=== PATIENT | female | born 1960 | race Caucasian/White ===

== ENCOUNTER 2024-01-14 16:10 | Inpatient (IN) | payer MEDICARE, OTHER ==
[~2024-01-14] VITALS: Ht 170.2 cm; Wt 99.0 kg
--- NOTE | 2024-01-14 18:03 | ED.PDOC ---
HPI (NEURO) HPI Comments 63y F who presents to the ED for chief complaint of migraine. Pt states she has been having migraine for the past 4 days. Pt states she has history of migraines and felt throbbing sensation by the L side of her head, non-radiating, rating the pain 8/10, constant, with no associated exacerbating or relieving factors. Pt states she has been taking her Nortek but states it has not been helping so she came to the ED for further evaluation. Pt otherwise denies chest pain, shorntess of breath, nausea, vomiting, or blurred vision. Pt has noted elevated blood pressure of 141/98 in the ED with all other vitals in normal range. Pt otherwise denies any other symptoms at this time. Chief Complaint: Headache Time Seen by MD: 18:01 Reviewed Notes: Medications, Allergies Information Source: Patient Mode of Arrival: Ambulatory Brought in by: self Past Medical History PAST MEDICAL HISTORY: HTN Surgical History: Denies all surgeries DRIVING INSTRUCTOR History: Denies all DRIVING INSTRUCTOR Hx Family History Family History: Unknown Social History Smoker: Non-Smoker Alcohol: Denies ETOH Use Drugs: Denies Drug Use Lives In: Home Constitutional: denies: chills, diaphoresis, fatigue, fever, malaise, sweats, weakness, others EENTM: denies: blurred vision, double vision, ear bleeding, ear discharge, ear drainage, ear pain, ear ringing, eye pain, eye redness, hearing loss, mouth pain, mouth swelling, nasal discharge, nose bleeding, nose congestion, nose pain, photophobia, tearing, throat pain, throat swelling, voice changes, others Respiratory: denies: cough, hemoptysis, orthopnea, SOB at rest, shortness of breath, SOB with excertion, stridor, wheezing, others Cardiovascular: denies: chest pain, dizzy spells, diaphoresis, Dyspnea on exertion, edema, irregular heart beat, left arm pain, lightheadedness, palpitations, PND, syncope, others Gastrointestinal: denies: abdomen distended, abdominal pain, blood streaked bowels, constipated, diarrhea, dysphagia, difficulty swallowing, hematemesis, melena, nausea, poor appetite, poor fluid intake, rectal bleeding, rectal pain, vomiting, others Genitourinary: denies: abnormal vagina bleeding, burning, dyspareunia, dysuria, flank pain, frequency, hematuria, incontinence, pain, , vagina discharge, urgency, others Neurological: reports: headache; denies: dizziness, fainting, left sided numbness, left sided weakness, numbness, paresthesia, pre-existing deficit, right sided numbness, right sided weakness, seizure, speech problems, tingling, tremors, weakness, others Musculoskeletal: denies: back pain, gout, joint pain, joint swelling, muscle pain, muscle stiffness, neck pain, others Integumetry: denies: bruises, change in color, change in hair/nails, dryness, laceration, lesions, lumps, rash, wounds, others Allergic/Immunocompromised: denies: Difficulty Healing, Frequent Infections, Hives, Itching, others Hematologic/Lymphatic: denies: anemia, blood clots, easy bleeding, easy bruising, swollen glands, others Endocrine: denies: excessive hunger, excessive sweating, excessive thirst, excessive urination, flushing, intolerance to cold, intolerance to heat, unexplained weight gain, unexplained weight loss, others Psychiatric: denies: anxiety, bipolar disorder, depression, hopeless, panic disorder, schizophrenia, sleepless, suicidal, others All Other Systems: Reviewed and Negative Physical Exam General Appearance: No Apparent Distress, Normal HEENT: Normal ENT Inspection, Pharynx Normal, TMs Normal Neck: Full Range of Motion, Non-Tender, Normal, Normal Inspection Respiratory: Chest Non-Tender, Lungs Clear, No Accessory Muscle Use, No Respiratory Distress, Normal Breath Sounds Cardiovascular: No Edema, No JVD, No Murmur, No Gallop, Normal Peripheral Pulses, Regular Rate/Rhythm Breast Exam: Deferred Gastrointestinal: No Organomegaly, Non Tender, No Pulsatile Mass, Normal Bowel Sounds, Soft Genitalia: Deferred Pelvic: Deferred Rectal: Deferred Extremities: No calf tenderness, Normal capillary refill, Normal inspection, Normal range of motion, Non-tender, No pedal edema Musculoskeletal : Apperance: Normal Neurologic: Alert, 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 Was a procedure done?: No Differential Diagnosis (SZ) Headache: Migraine, Closed Head Injury, Sinusitis, Trigeminal Neuralgia X-Ray, Labs, Meds, VS Vital Signs Date Time Temp Pulse Resp B/P (MAP) Pulse Ox O2 Delivery O2 Flow Rate FiO2 01/14/24 18:35 94 16 97 Room Air* 0 21 01/14/24 18:11 98.2 94 16 192/110 (137) 97 98.2 01/14/24 18:11 94 16 01/14/24 17:32 98.5 104 18 141/98 (112) 97 Current Medications Medications (Trade) Dose Ordered Sig/Yaniv Route Start Time Stop Time Status Last Admin Sodium Chloride 1,000 ml @ 1,000 mls/hr Q1H ONCE IV 01/14/24 17:15 01/14/24 18:14 DC 01/14/24 18:06 Metoclopramide HCl (Reglan Injection) 10 mg ONCE ONCE IV 01/14/24 17:15 01/14/24 17:16 DC 01/14/24 18:21 Acetaminophen (Tylenol Tablet) 650 mg ONCE ONCE PO 01/14/24 17:15 01/14/24 17:16 DC 01/14/24 18:07 Ketorolac Tromethamine (Toradol Injection) 15 mg ONCE ONCE IV 01/14/24 17:15 01/14/24 17:16 DC 01/14/24 18:20 Magnesium Sulfate/ Dextrose 100 ml @ 100 mls/hr Q1H IV 01/14/24 20:00 01/14/24 21:59 DC 01/14/24 22:00 Dexamethasone Sodium Phosphate (Decadron Injection) 10 mg ONCE ONCE IV 01/14/24 20:00 01/14/24 20:01 DC 01/14/24 20:23 Sumatriptan Succinate (Imitrex Inj) 6 mg ONCE ONCE SC 01/14/24 23:15 01/14/24 23:16 DC 01/14/24 23:26 Diphenhydramine HCl (Benadryl Injection) 25 mg ONCE ONCE IV 01/14/24 23:15 01/14/24 23:16 DC 01/14/24 23:27 Time of 1ST Reevaluation: 18:30 Reevaluation 1ST: Unchanged Patient Education/Counseling: Diagnosis, Treatment Family Education/Counseling: No Family Present Departure 1 Departure Time of Disposition: 23:37 (Patient with intractable migraine has failed multiple other treatments. We will admit patient for status migrainous.) Impression: Primary Impression: Migraine Qualified Codes: G43.111 - Migraine with aura, intractable, with status migrainosus Disposition: ADMITTED INPATIENT Admit to: Med Surg Condition: Serious Critical Care Note Critical Care Time?: No Stability Stability form required: No Heart Score Heart Score: Heart Score Response (Comments) Value History N/A 0 EKG N/A 0 Age N/A 0 Risk Factors N/A 0 Troponin N/A 0 Total 0 I personally scribed for CHINO DONAHUE MD ([email or web address]) on 01/14/24 at 18:03. Electronically submitted by Mason Waters ([facility]). CHINO DONAHUE MD Jan 14, 2024 18:03
[2024-01-14] MEDS: SODIUM CHLORIDE 0.9% 1,000 ML IV ONE (18:06)
[2024-01-14] MEDS: ACETAMINOPHEN 325 MG TAB PO ONE (18:07)
[2024-01-14] MEDS: KETOROLAC TROMETH 30 MG/ML 1ML VIAL IV ONE (18:20)
[2024-01-14] MEDS: METOCLOPRAMIDE HCL 5MG/ml INJ 2ml VIAL IV ONE (18:21)
[2024-01-14 18:35] VITALS: PULSE 94; RESP 16; O2SAT 97
[2024-01-14] MEDS: MAGNESIUM SULFATE 1GM/100ML 100 ML IV SCH (20:23)
[2024-01-14] MEDS: DexAMETHasone SOD PHOS 10MG/1ML VIAL INJ IV ONE (20:23)
[2024-01-14] MEDS: SUMAtriptan SUCCINATE 6 MG/0.5 ML VL SC ONE (23:26)
[2024-01-14] MEDS: diphenhdrAMINE HCL 50 MG/1 ML VL IV ONE (23:27)
[2024-01-14 23:55] LABS: Basophils # (auto) 0 10 ^3/uL (0-0.2); Basophils % (auto) 0.3 % (0.0-2.0); Eosinophils # (auto) 0 10 ^3/uL (0-0.8); Eosinophils % (auto) 0.3 % (0.0-7.0); Hematocrit 43.5 % (36.0-46.0); Hemoglobin 14.4 g/dL (12.2-16.2); Lymphocytes # (auto) 1.4 10 ^3/uL (0.4-5.4); Lymphocytes % (auto) 15.4 % (10.0-50.0); Mean Corpuscular Hgb Conc. 33.1 g/dL (32.0-36.0); Mean Corpuscular Volume 96.7 fL (80.0-100.0); Monocytes # (auto) 0.2 10 ^3/uL (0-1.3); Monocytes % (auto) 1.8 % (0.0-12.0); Neutrophils # (auto) 7.6 10 ^3/uL (1.6-8.6); Neutrophils % (auto) 82.2 % (37.0-80.0); Nucleated Red Blood Cells % 0.1 %; Platelet Count (auto) 334 10^3/uL (140-450); Red Cell Distribution Width 14.1 % (11.8-14.3); White Blood Cell 9.2 10^3/uL (4.4-10.8)
[2024-01-15] VITALS (9 sets, daily range): BP systolic 141–202; BP diastolic 85–109; PULSE 82–116; RESP 16–20; TEMP 97.7–98.2; O2SAT 94–97
[2024-01-15 00:06] LABS: Chloride 106 mmol/L (98-107); Sodium 137 mmol/L (136-145)
[2024-01-15 00:07] LABS: Anion Gap 14 (5-15); Calcium 10.4 mg/dL (8.7-10.4); Carbon Dioxide 17 mmol/L (20-31)
[2024-01-15 00:12] LABS: BUN/Creatinine Ratio 20.8 (10.0-20.0); Blood Urea Nitrogen 26 mg/dL (9-23); Glucose 176 mg/dL (74-106)
[2024-01-15] MEDS ORDERED: DOCUSATE SOD 100 MG CAP PO PRN (01:15)
[2024-01-15] MEDS ORDERED: ONDANSETRON HCL 4 MG/2 ML VIAL IV PRN (01:15)
[2024-01-15] MEDS ORDERED: ACETAMINOPHEN 325 MG TAB PO PRN (01:15)
[2024-01-15] MEDS ORDERED: NITROGLYCERIN 0.4 MG SL TAB SL PRN (01:30)
--- NOTE | 2024-01-15 01:30 | DVHHP2 ---
History of Present Illness Reason for Visit: Headache History of Present Illness The patient is a 63-year-old female with past medical history of hypertension who presented to [facility] ED with complaint of migraine headache. Patient reports symptoms progressively get worse with left-sided headache, nonradiating, throbbing sensation, rating 8/10 numeric scale, constant, getting worse that prompted this visit. Patient reports she has been taking her Nortek, but has not been helping, so she came to the ED for further evaluation. Patient was seen and evaluated in the ED, laboratory data shows WBC 9.2, platelets 334, sodium 137, potassium 4.0, BUN 26, creatinine 1.25, glucose 176, hemoglobin A1c 6.4, blood pressure 192/110 trending down to 145/76, heart rate 94, temperature 98.2 F, O2 saturation 97% on room air. Please see medication orders section in the computer. On my assessment, patient denied chest pain, no dizziness, no diaphoresis, no blurry vision, no shortness of breath, no nausea, no vomiting, no fever, no chills. Patient was admitted for further evaluation and medical management. Past Medical History HTN Past Surgical History Denies all surgeries Family History Reviewed, noncontributory to the management of this case. Past Social History The patient lives at home, denies smoking, alcohol or illicit drugs abuse. Review of Systems Constitutional: Yes: Weakness; No: Fever, Chills, Sweats, Malaise, Other Eyes: No: Pain, Vision change, Conjunctivae inflammation, Eyelid inflammation, Other, Redness ENT: No: Ear pain, Ear discharge, Nose pain, Nose discharge, Nose congestion, Mouth pain, Mouth swelling, Throat pain, Throat swelling, Other Respiratory: No: Cough, Dry, Shortness of breath, SOB with excertion, Wheezing, Hemoptysis, Pleuritic Pain, Sputum, Wheezing, Other Cardiovascular: No: Chest Pain, Palpitations, Orthopnea, Paroxysmal Noc. Dyspnea, Edema, Lt Headedness, Other Gastrointestinal: No: Nausea, Vomiting, Abdominal Pain, Diarrhea, Constipation, Melena, Hematochezia, Other Genitourinary: No Dysuria, No Frequency, No Incontinence, No Hematuria, No Retention, No Other Musculoskeletal: No: other, neck pain, shoulder pain, arm pain, back pain, hand pain, leg pain, foot pain Skin: No: Rash, Lesions, Jaundice, Bruising, Other Neurological: Other (Headache); No: Weakness, Numbness, Incoordination, Change in speech, Confusion, Seizures Allergies: Coded Allergies: NO KNOWN ALLERGIES (Unverified , 01/14/24) Medications Current Medications Medications Dose Ordered Sig/Yaniv Route Start Time Stop Time Status Last Admin Dose Admin Sumatriptan Succinate 25 mg Q2HP PRN PO 01/15/24 01:15 Sodium Chloride 1,000 ml @ 60 mls/hr [id number] IV 01/15/24 01:15 Acetaminophen/ Hydrocodone Bitart 1 tab Q4HP PRN PO 01/15/24 01:15 Ondansetron HCl 4 mg Q4HP PRN IV 01/15/24 01:15 Docusate Sodium 100 mg BIDPRN PRN PO 01/15/24 01:15 Acetaminophen 650 mg Q6HP PRN PO 01/15/24 01:15 Exam Vital Signs Vital Signs Date Time Temp Pulse Resp B/P (MAP) Pulse Ox O2 Delivery O2 Flow Rate FiO2 01/14/24 18:35 94 16 97 Room Air* 0 21 01/14/24 18:11 98.2 192/110 (137) 98.2 General Appearance: Alert, Oriented X3, Cooperative, No acute distress HEENT: Atraumatic, PERRLA, EOMI, Mucous membr. moist/pink Respiratory: Clear to auscultation, Normal air movement Cardiovascular: Regular rate, Normal S1, Normal S2, No murmurs Abdominal: Normal bowel sounds, Soft, No tenderness, No hepatospenomegaly, No masses Extremities: No clubbing, No cyanosis, No edema, Normal pulses, No tenderness/swelling Skin: No rashes, No breakdown, No significant lesion Neuro: Normal gait, Normal speech, Strength at 5/5 X4 ext, Normal tone, Sensation intact, Cranial nerves 3-12 NL, Reflexes 2+ Psych/Mental Status: Mental status NL, Mood NL Labs/Xrays Labs Test 01/14/24 23:46 Range/Units White Blood Count 9.2 4.4-10.8 10^3/uL Red Blood Count 4.50 4.0-5.20 10^6/uL Hemoglobin 14.4 12.2-16.2 g/dL Hematocrit 43.5 36.0-46.0 % Mean Corpuscular Volume 96.7 80.0-100.0 fL Mean Corpuscular Hemoglobin 32.0 28.0-32.0 pg Mean Corpuscular Hemoglobin Concent 33.1 32.0-36.0 g/dL Red Cell Distribution Width 14.1 11.8-14.3 % Platelet Count 334 140-450 10^3/uL Mean Platelet Volume 7.2 6.9-10.8 fL Neutrophils (%) (Auto) 82.2 H 37.0-80.0 % Lymphocytes (%) (Auto) 15.4 10.0-50.0 % Monocytes (%) (Auto) 1.8 0.0-12.0 % Eosinophils (%) (Auto) 0.3 0.0-7.0 % Basophils (%) (Auto) 0.3 0.0-2.0 % Neutrophils # (Auto) 7.6 1.6-8.6 10 ^3/uL Lymphocytes # (Auto) 1.4 0.4-5.4 10 ^3/uL Monocytes # (Auto) 0.2 0-1.3 10 ^3/uL Eosinophils # (Auto) 0 0-0.8 10 ^3/uL Basophils # (Auto) 0 0-0.2 10 ^3/uL Nucleated Red Blood Cells 0.1 % Sodium Level 137 136-145 mmol/L Potassium Level 4.0 3.5-5.1 mmol/L Chloride Level 106 98-107 mmol/L Carbon Dioxide Level 17 L 20-31 mmol/L Anion Gap 14 5-15 Blood Urea Nitrogen 26 H 9-23 mg/dL Creatinine 1.25 H 0.550-1.02 mg/dL Glomerular Filtration Rate Calc 48 >90 mL/min BUN/Creatinine Ratio 20.8 H 10.0-20.0 Serum Glucose 176 H 74-106 mg/dL Calcium Level 10.4 8.7-10.4 mg/dL Assessment/Plan Assessment/Plan Hypertensive urgency Headache Migraine with aura, intractable, with status migrainosus Type 2 diabetes mellitus with hyperglycemia Plan 1. Admit to med surge unit 2. Breathing treatment 3. Pain control management 4. Management of fluids and electrolytes 5. Consultation for hospitalist 6. Diagnostic tests head CT 7. DVT prophylaxis-on SCDs 8. Repeat labs CBC, CMP in a.m. 9. Continue with current medical management 10. Treatment plan discussed with patient and RN. Patient verbalized understanding. Plan discussed with: Patient, Other (RN) My Orders Orders - ALEJANDRINA ANDERSEN DNP Procedure Category Date Status Time Complete Blood Count LAB 01/15/24 Logged 04:00 Comprehensive LAB 01/15/24 Logged Metabolic Panel 04:00 Sumatriptan Succinate PHA 01/15/24 In Process Tablet (Imitrex Ta 01:15 Hemoglobin A1c LAB 01/15/24 In Process 01:11 Allergies RITO 01/15/24 In Process 01:11 Code Status CODE 01/15/24 Transmitted 01:11 Sodium Chloride 0.9% PHA 01/15/24 In Process 01:15 Oxygen Per Hour RT 01/15/24 Transmitted 01:11 Hydrocodone-Acet PHA 01/15/24 In Process 5/325mg Tab ([place] 01:15 Ondansetron Hcl PHA 01/15/24 In Process (Zofran) 01:15 Docusate Sodium PHA 01/15/24 In Process Capsule (Colace 01:15 Complete Blood Count LAB 01/16/24 Verified 04:00 Comprehensive LAB 01/16/24 Verified Metabolic Panel 04:00 Cardiac DIET 01/15/24 Transmitted Diet-2gna,Lofat,Lochol Breakfast Condition: Serious RITO 01/15/24 In Process 01:11 Acetaminophen Tablet PHA 01/15/24 In Process (Tylenol Tablet) 01:15 Bedrest With Bathroom RITO 01/15/24 In Process Privileg 01:11 Sequential RITO 01/15/24 In Process Compression Device * Neurology Consult CONS 01/15/24 Transmitted 01:11 Metoprolol Tartrate PHA 01/15/24 Transmitted Tablet (Lopressor Ta 10:00 Losartan Tablet PHA 01/15/24 Transmitted (Cozaar Tablet) 10:00 Hydralazine Injection PHA 01/15/24 Transmitted (Apresoline Inject 01:30 Admit ADMIT 01/15/24 Transmitted 01:27 Nitroglycerin PHA 01/15/24 Transmitted Sublingual (Ntrostat 01:30 Morphine Sulfate PHA 01/15/24 Transmitted Injection 01:30 Notify Of Changes RITO 01/15/24 Transmitted From Base 01:27 Emergency Dysrhythmia RITO 01/15/24 Transmitted Protocol 01:27 Oxygen By Nasal RT 01/15/24 Transmitted Cannula 01:27 Problem List: (1) Hypertensive urgency (2) Headache (3) Type 2 diabetes mellitus with hyperglycemia (4) Migraine with aura, intractable, with status migrainosus Date of Service: Jan 15, 2024 Billing Provider: ALEJANDRINA ANDERSEN DNP Common Visit Codes: [id number] INP/OBS CARE (HIGH) ALEJANDRINA ANDERSEN DNP Jan 15, 2024 01:30
[2024-01-15] MEDS: SODIUM CHLORIDE 0.9% 1,000 ML IV SCH (02:00)
[2024-01-15] MEDS: hydrALAZINE HCL 20 MG/ML VL IV PRN (02:20)
[2024-01-15] MEDS: cloNIDine HCL 0.1 MG TAB PO ONE (03:00)
[2024-01-15] MEDS: SUMAtriptan SUCCINATE 25 MG TAB PO PRN (03:09)
[2024-01-15] MEDS: HYDROcodone-ACET 5/325MG TAB PO PRN (03:28)
[2024-01-15] MEDS: MORPHINE SULFATE INJ 2 MG/ml SYRG IV PRN (04:37)
[2024-01-15] MEDS ORDERED: DEXTROSE (50%) 50ML SYRG IV PRN (04:45)
[2024-01-15 05:37] LABS: Basophils # (auto) 0 10 ^3/uL (0-0.2); Basophils % (auto) 0.2 % (0.0-2.0); Eosinophils # (auto) 0 10 ^3/uL (0-0.8); Eosinophils % (auto) 0.1 % (0.0-7.0); Hematocrit 40.9 % (36.0-46.0); Hemoglobin 13.8 g/dL (12.2-16.2); Lymphocytes # (auto) 1.7 10 ^3/uL (0.4-5.4); Lymphocytes % (auto) 22.6 % (10.0-50.0); Mean Corpuscular Hemoglobin 32.2 pg (28.0-32.0); Mean Corpuscular Hgb Conc. 33.7 g/dL (32.0-36.0); Mean Corpuscular Volume 95.6 fL (80.0-100.0); Monocytes # (auto) 0.4 10 ^3/uL (0-1.3); Monocytes % (auto) 4.7 % (0.0-12.0); Neutrophils # (auto) 5.5 10 ^3/uL (1.6-8.6); Neutrophils % (auto) 72.4 % (37.0-80.0); Nucleated Red Blood Cells % 0.1 %; Platelet Count (auto) 322 10^3/uL (140-450); Red Blood Cells 4.28 10^6/uL (4.0-5.20); Red Cell Distribution Width 14.5 % (11.8-14.3); White Blood Cell 7.5 10^3/uL (4.4-10.8)
[2024-01-15 05:52] LABS: Alanine Aminotransferase 35 U/L (7-40); Albumin 4.9 g/dL (3.2-4.8); Alkaline Phosphatase 133 U/L (46-116); Anion Gap 13 (5-15); Aspartate Aminotransferase 18 U/L (13-40); BUN/Creatinine Ratio 20.4 (10.0-20.0); Bilirubin, Total 0.2 mg/dL (0.2-1.0); Blood Urea Nitrogen 23 mg/dL (9-23); Calcium 10.2 mg/dL (8.7-10.4); Carbon Dioxide 19 mmol/L (20-31); Chloride 107 mmol/L (98-107); Glucose 171 mg/dL (74-106); Potassium 3.8 mmol/L (3.5-5.1); Sodium 139 mmol/L (136-145); Total Protein 7.6 g/dL (5.7-8.2)
--- NOTE | 2024-01-15 07:42 | DVHINCON2 ---
Date of Consultation Date Date: 01/15/24 History of Present Illness History of Present Illness [place] [facility] Note # Demographics Consult Type: General Neurology Patient Location: Inpatient First Name: TANISHA Last Name: MARIAN Date of : 1960 Age: 64 Gender: Female Facility: [facility] Time of Initial Page (): 01/15/2024, 07:34 Time of Return Call ([place] Time): 01/15/2024, 07:34 # HPI History: 64yof with migraines who p/w migraine for the past 4 days. # Exam Time of Exam ([place] ): 01/15/2024, 07:38 Mental Status: - awake - alert and oriented x 3 - follows commands Language: - normal speech - no aphasia - no dysarthria Cranial Nerves: - normal - extra ocular movements intact - PERRLA Motor: - normal strength - normal bulk Sensory: - normal sensation - normal sensation to light touch Cerebellar: - normal cerebellar exam # Plan Medication: - migraine cocktail: Toradol 30 mg IV + Benadryl 25 mg IV + antiemetic IV Can try symptomatic management with one or more of the following: - Toradol 30mg IV - Compazine 5mg IV - Magnesium Sulfate 1g IV - Solumedrol 125mg IV - Depacon 500mg IV - Imitrex 6mg IM, may repeat in 1 hour if no relief. No more than 12mg/24hr period If the above are unsuccessful the following can be tried: - Caffeine 500mg IV - Intranasal lidocaine 4% wo Epi - Obtain B12; if low by Neurology standards (<400) this can be a contributor to intractable headaches and should be repleted Replete as you would with a B12 deficiency--> 1000 IV daily x 4 days, then 100 mcg indefinitely Other: - If patient has any neurological deterioration please call me back immediately # Logistics Attestation of consult completion: The patient is located at: [facility]. Facility staff participated in the visit. I performed this telemedicine visit from my offsite office utilizing interactive 2 way audio and visual telecommunication technology. Total time spent in telemedicine encounter: I spent 27 minutes reviewing clinical data and/or imaging, obtaining history, examining the patient, communicating with the onsite care team, and in preparation of this report. # Demographics First Name: TANISHA Last Name: MARIAN Facility: [facility] Family History Family History Family History: Patient reports no known family medical history. Allergies: Coded Allergies: NO KNOWN ALLERGIES (Unverified , 01/14/24) Current Medications Current Medications Medications (Trade) Dose Ordered Sig/Yaniv Route PRN Reason Start Time Stop Time Status Last Admin Magnesium Sulfate/ Dextrose 100 ml @ 100 mls/hr Q1H IV 01/14/24 20:00 01/14/24 21:59 DC 01/14/24 22:00 Sumatriptan Succinate (Imitrex Tablet) 25 mg Q2HP PRN PO FOR HEADACHE 01/15/24 01:15 01/15/24 03:09 Sodium Chloride 1,000 ml @ 60 mls/hr [id number] IV 01/15/24 01:15 01/15/24 02:00 Acetaminophen/ Hydrocodone Bitart ([place] 5/325MG Tab) 1 tab Q4HP PRN PO MODERATE PAIN (4-6 PAIN SCALE) 01/15/24 01:15 01/15/24 03:28 Ondansetron HCl (Zofran) 4 mg Q4HP PRN IV NAUSEA / VOMITING 01/15/24 01:15 Docusate Sodium (Colace Capsule) 100 mg BIDPRN PRN PO FOR CONSTIPATION 01/15/24 01:15 Acetaminophen (Tylenol Tablet) 650 mg Q6HP PRN PO PAIN SCALE 1-3 OR TEMP>100.4 01/15/24 01:15 Metoprolol Tartrate (Lopressor Tablet) 50 mg BID PO 01/15/24 10:00 Losartan Potassium (Cozaar Tablet) 100 mg DAILY PO 01/15/24 10:00 Hydralazine HCl (Apresoline Injection) 10 mg Q6HP PRN IV SBP>150 01/15/24 01:30 01/15/24 02:20 Nitroglycerin (Ntrostat Sublingual) 0.4 mg Q5MINP PRN SL FOR CHEST PAIN 01/15/24 01:30 Morphine Sulfate 2 mg Q30M PRN IV FOR CHEST PAIN 01/15/24 01:30 01/15/24 04:37 Diagnostic Test (Pha) (Accu-Chek Comfort Curve T) 1 strip IQ4HR 01/15/24 08:00 Insulin Human Regular (InsuLIN R) IQ4HR SC 01/15/24 08:00 Dextrose 50 ml UD PRN IV Blood Sugar LESS THAN 60 01/15/24 04:45 Physical Examination General Examination: Last Vital sign Vital Signs Date Time Temp Pulse Resp B/P (MAP) Pulse Ox O2 Delivery O2 Flow Rate FiO2 01/15/24 05:31 Room Air* 0 21 01/15/24 05:26 114 16 141/87 (105) 97 01/15/24 05:00 97.9 97.9 General: General: No apparent distress, appears comfortable. Cooperative. Neurological Examination: Neurological Examination: Mental Status: Cranial Nerves: Motor Examination: Reflexes: Sensory: Coordination: Gait: Labs: Labs: Laboratory Tests Test 01/14/24 23:46 01/15/24 04:51 Range/Units White Blood Count 9.2 7.5 4.4-10.8 10^3/uL Red Blood Count 4.50 4.28 4.0-5.20 10^6/uL Hemoglobin 14.4 13.8 12.2-16.2 g/dL Hematocrit 43.5 40.9 36.0-46.0 % Mean Corpuscular Volume 96.7 95.6 80.0-100.0 fL Mean Corpuscular Hemoglobin 32.0 32.2 H 28.0-32.0 pg Mean Corpuscular Hemoglobin Concent 33.1 33.7 32.0-36.0 g/dL Red Cell Distribution Width 14.1 14.5 H 11.8-14.3 % Platelet Count 334 322 140-450 10^3/uL Mean Platelet Volume 7.2 7.6 6.9-10.8 fL Neutrophils (%) (Auto) 82.2 H 72.4 37.0-80.0 % Lymphocytes (%) (Auto) 15.4 22.6 10.0-50.0 % Monocytes (%) (Auto) 1.8 4.7 0.0-12.0 % Eosinophils (%) (Auto) 0.3 0.1 0.0-7.0 % Basophils (%) (Auto) 0.3 0.2 0.0-2.0 % Neutrophils # (Auto) 7.6 5.5 1.6-8.6 10 ^3/uL Lymphocytes # (Auto) 1.4 1.7 0.4-5.4 10 ^3/uL Monocytes # (Auto) 0.2 0.4 0-1.3 10 ^3/uL Eosinophils # (Auto) 0 0 0-0.8 10 ^3/uL Basophils # (Auto) 0 0 0-0.2 10 ^3/uL Nucleated Red Blood Cells 0.1 0.1 % Sodium Level 137 139 136-145 mmol/L Potassium Level 4.0 3.8 3.5-5.1 mmol/L Chloride Level 106 107 98-107 mmol/L Carbon Dioxide Level 17 L 19 L 20-31 mmol/L Anion Gap 14 13 5-15 Blood Urea Nitrogen 26 H 23 9-23 mg/dL Creatinine 1.25 H 1.13 H 0.550-1.02 mg/dL Glomerular Filtration Rate Calc 48 54 >90 mL/min BUN/Creatinine Ratio 20.8 H 20.4 H 10.0-20.0 Serum Glucose 176 H 171 H 74-106 mg/dL Hemoglobin A1c 6.4 H <5.7 % A1C Calcium Level 10.4 10.2 8.7-10.4 mg/dL Total Bilirubin 0.2 0.2-1.0 mg/dL Aspartate Amino Transferase (AST) 18 13-40 U/L Alanine Aminotransferase (ALT) 35 7-40 U/L Alkaline Phosphatase 133 H 46-116 U/L Total Protein 7.6 5.7-8.2 g/dL Albumin 4.9 H 3.2-4.8 g/dL Assessment/Plan Assessment/Plan Assessment and Plan:Tanisha Streeter is a 64 year old female who presents with Plan discussed with: Patient LICHA COOK MD Jan 15, 2024 07:42
[2024-01-15] MEDS: InsuLIN REG 1unit/0.01ml Soln (100units/ml) SC SCH (08:08)
[2024-01-15] MEDS: ACCU-CHEK COMFORT CURVE STRIP VI SCH (08:12)
[2024-01-15] MEDS ORDERED: diphenhdrAMINE HCL 50 MG/1 ML VL IV PRN (08:30)
[2024-01-15] MEDS: LOSARTAN POTASSIUM 50 MG TAB PO SCH (10:03)
[2024-01-15] MEDS: METOPROLOL TARTRATE 50 MG TAB PO SCH (10:05)
[2024-01-15] MEDS: KETOROLAC TROMETH 30 MG/ML 1ML VIAL IV PRN (10:15)
--- NOTE | 2024-01-15 10:21 | DVH ---
CT HEAD WITHOUT CONTRAST Indication: hyeprtesive urgency severe headache EXAM DATE: 01/15/2024 09:38 AM COMPARISON: None TECHNIQUE: CT of the head without intravenous contrast. RADIATION DOSE: CTDIvol: 55.01 mGy, DLP: 881.89 mGy*cm FINDINGS: There is no intracranial hemorrhage. There is no extra-axial fluid, mass, mass effect or midline shif t. The ventricles are midline and normal in size. Basilar cisterns are patent. Moderate periventricul ar and subcortical white matter chronic microvascular ischemic changes. 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 The paranasal sinuses and mastoids are well-pneumatized. Imaged portion of the orbits are unremarkabl e. IMPRESSION: 1. No intracranial hemorrhage or mass effect. 2. Moderate chronic microvascular ischemic changes. 3. 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 Recommend MRI brain to further amrit racterize.
[2024-01-15] MEDS ORDERED: DICY-89 PO (13:04)
[2024-01-15] MEDS ORDERED: METO-159 PO (13:04)
[2024-01-15] MEDS ORDERED: METH-1182 PO (13:04)
[2024-01-15] MEDS ORDERED: HYDR25TA88 PO (13:04)
[2024-01-15] MEDS ORDERED: ZONI100C43 PO (13:04)
[2024-01-15] MEDS ORDERED: AMIT25TA20 PO (13:04)
[2024-01-15] MEDS ORDERED: LOSA-535 PO (13:04)
[2024-01-15] MEDS ORDERED: INDO50CA82 PO (13:04)
[2024-01-15] MEDS ORDERED: TOPI100T68 PO (13:04)
[2024-01-15] MEDS ORDERED: TIZA4CAP PO ×2 (13:04)
[2024-01-15] MEDS: diphenhdrAMINE HCL 50 MG/1 ML VL IV SCH (13:37)
[2024-01-15] MEDS: ACETAMINOPHEN 500 MG TAB PO SCH (13:51)
--- NOTE | 2024-01-15 13:59 | DVHPNRES ---
Progress Note Date Seen: Jan 15, 2024 Resident Creating Document: MAGGIE ABRAHAM RESIDENT Has the PT tested + for MRSA If YES, has PT been informed?: No Medical Necessity Reason Pt with a Central, PICC or Fol: No Subjective Review of Systems 60-year-old female with past medical history of hypertension came for the worse headache of her life the headache is in the left side throbbing sensation according to her 10-10 also radiated to the occipital side patient was taking Nurtec with no improvement ulcer at admission blood pressure was found in 192/[address] did not show any acute bleeding but chronic microvascular ischemic changes 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 Neurology was consulted who optimized pain management At the moment pain is subsiding Home meds: Amitriptyline the clot clot examined hydralazine indomethacin losartan methocarbamol metoprolol tizanidine topiramate zonisamide Objective vital signs Vital Sign Date Time Temp Pulse Resp B/P (MAP) Pulse Ox O2 Delivery O2 Flow Rate FiO2 01/15/24 11:05 107 147/82 01/15/24 09:00 98.2 20 97 98.2 01/15/24 08:00 Room Air* 0 21 Total Intake and Output 01/14/24 01/14/24 01/15/24 15:00 23:00 07:00 Intake Total 1100 ml 280 ml Output Total 0 ml Balance 1100 ml 280 ml medications Current Medications Medications Dose Ordered Sig/Yaniv Route Start Time Stop Time Status Last Admin Dose Admin Sumatriptan Succinate 25 mg Q2HP PRN PO 01/15/24 01:15 01/15/24 03:09 25 MG Sodium Chloride 1,000 ml @ 60 mls/hr [id number] IV 01/15/24 01:15 01/15/24 02:00 60 MLS/HR Acetaminophen/ Hydrocodone Bitart 1 tab Q4HP PRN PO 01/15/24 01:15 01/15/24 12:18 1 TAB Ondansetron HCl 4 mg Q4HP PRN IV 01/15/24 01:15 Docusate Sodium 100 mg BIDPRN PRN PO 01/15/24 01:15 Metoprolol Tartrate 50 mg BID PO 01/15/24 10:00 01/15/24 10:05 50 MG Losartan Potassium 100 mg DAILY PO 01/15/24 10:00 01/15/24 10:03 100 MG Nitroglycerin 0.4 mg Q5MINP PRN SL 01/15/24 01:30 Morphine Sulfate 2 mg Q30M PRN IV 01/15/24 01:30 01/15/24 04:37 2 MG Diagnostic Test (Pha) 1 strip IQ4HR 01/15/24 08:00 01/15/24 08:12 1 STRIP Insulin Human Regular IQ4HR SC 01/15/24 08:00 01/15/24 08:08 2 UNITS Dextrose 50 ml UD PRN IV 01/15/24 04:45 Ketorolac Tromethamine 30 mg Q6HPRN PRN IV 01/15/24 08:30 01/20/24 08:29 01/15/24 10:15 30 MG Diphenhydramine HCl 25 mg Q12HR IV 01/15/24 12:30 01/15/24 13:37 25 MG Topiramate 100 mg DAILY PO 01/16/24 10:00 Acetaminophen 1,000 mg TID PO 01/15/24 14:00 Hydralazine HCl 25 mg Q12HR PO 01/15/24 22:00 Examination GEN: Healthy appearing, well-developed, NAD. PSYCH: Good Judgment. AOx3. Normal memory, mood, and affect. HEENT -Head: normocephalic atraumatic, no facial trauma, neck is supple -Eyes: bilateral mydriasis -Ears: External ears are normal. Normal TMs. -Nose: Normal nares. -Mouth and throat: MMM. Normal gums, mucosa, palate,. Good dentition. NECK: Supple, with no masses. CV: RRR, no m/r/g. LUNGS: respiratory effort normal, speaks in full sentences, no tripod position, no accessory muscle use. Lungs clear to auscultation without rhonchi, wheezes, rales ABD: Soft, ND/NT. No evidence of fluid wave. No pulsatile masses on exam, rebound tenderness, Barker sign or pain over Mcburney's point. : N/A SKIN: Warm, well perfused. No skin rashes or abnormal lesions. MSK: No deformities or signs of scoliosis. Normal gait. EXT: No clubbing, cyanosis, or edema. NEURO: Ambulating with no limitations. Normal muscle strength and tone. No focal deficits. laboratory and microbiology Laboratory Tests 01/15/24 04:51 Test 01/15/24 04:51 Range/Units Serum Glucose 171 H 74-106 mg/dL Problem List/Assessment/Plan Problem List/Assessment/Plan #Hypertensive urgency resolved #Migraine with aura #STEPHANIE probable VMN Keep fluids: mild STEPHANIE Pain managment: tylenol scheduled, benadryl scheduled and topiramte yaniv PRN: ketorolac, triptan BP managment: hydralazine 25mg PO 12h, Losartan 100 mg PO, metoprolol 50 mg BID normal hba1c Case discussed with Dr Swenson Time spent on care 23min Plan discussed with: Patient, Other (rn) My Orders My Orders Orders - MAGGIE ABRAHAM Procedure Category Date Status Time Head Without Contrast CT 01/15/24 Resulted 07:30 Ketorolac Injection PHA 01/15/24 In Process (Toradol Injection) 08:30 Diphenhdramine PHA 01/15/24 In Process Injection (Benadryl 12:30 Topiramate (Topamax) PHA 01/16/24 In Process 10:00 Acetaminophen Tablet PHA 01/15/24 In Process (Tylenol Tablet) 14:00 Hydralazine Hcl PHA 01/15/24 In Process Tablet (Apresoline 22:00 Date of Service: Jan 15, 2024 Billing Provider: YUMIKO SWENSON MD Common Visit Codes: [id number] INP/OBS CARE(HIGH) MAGGIE ABRAHAM RESIDENT Jan 15, 2024 13:59 YUMIKO SWENSON MD Jan 15, 2024 21:22
[2024-01-15] MEDS: TOPIRAMATE 100 MG TAB PO SCH (14:00)
[2024-01-15 14:46] LABS: Sodium Urine 55 mmol/L (40-220)
[2024-01-15 14:51] LABS: Protein, Urine 22.4 mg/dL (1-14); Urine Bacteria FEW /hpf (None Seen); Urine Blood Negative /uL (Negative); Urine Clarity Clear (Clear); Urine Color Light-Yellow (Yellow); Urine Protein, UAD Negative (Negative); Urine Specific Gravity 1.018 (1.001-1.035); Urine Urobilinogen Normal (Negative); Urine WBC 20 /hpf (0 - 5); Urine pH 6.5 (5.0-9.0)
[2024-01-15 14:53] LABS: Amphetamine Screen, Urine Neg (NEGATIVE); Barbiturate Scree,Urine Neg (NEGATIVE); Benzodiazephine Screen, Urine Neg (NEGATIVE); Cannabinoid Screen, Urine Neg (NEGATIVE); Cocaine Screen, Urine Neg (NEGATIVE); Creatinine, Urine 109.18 mg/dL (30.0-125.0); Opiate Scree,Urine Pos (NEGATIVE); Phencyclidine Screen, Urine Neg (NEGATIVE); Urine Protein/Creatinine Ratio 0.21
[2024-01-15] MEDS: hydrALAZINE HCL 25 MG TAB ONE (15:07)
[2024-01-15] MEDS: TOPIRAMATE 25 MG TAB ONE (15:07)
[2024-01-15] MEDS: hydrALAZINE HCL 25 MG TAB PO SCH (15:18)
[2024-01-15] MEDS ORDERED: hydrALAZINE HCL 25 MG TAB PO SCH (22:00)
[2024-01-16] VITALS (8 sets, daily range): BP systolic 157–180; BP diastolic 84–99; PULSE 72–84; RESP 18–19; TEMP 97.8–98.2; O2SAT 95–98
[2024-01-16 06:06] LABS: Basophils # (auto) 0 10 ^3/uL (0-0.2); Basophils % (auto) 0.5 % (0.0-2.0); Eosinophils # (auto) 0.2 10 ^3/uL (0-0.8); Eosinophils % (auto) 3.3 % (0.0-7.0); Hematocrit 38.3 % (36.0-46.0); Hemoglobin 12.8 g/dL (12.2-16.2); Lymphocytes % (auto) 41.1 % (10.0-50.0); Mean Corpuscular Hemoglobin 32.1 pg (28.0-32.0); Mean Corpuscular Hgb Conc. 33.3 g/dL (32.0-36.0); Mean Corpuscular Volume 96.3 fL (80.0-100.0); Monocytes # (auto) 0.7 10 ^3/uL (0-1.3); Monocytes % (auto) 9.1 % (0.0-12.0); Neutrophils # (auto) 3.4 10 ^3/uL (1.6-8.6); Nucleated Red Blood Cells % 0.1 %; Platelet Count (auto) 275 10^3/uL (140-450); Red Blood Cells 3.97 10^6/uL (4.0-5.20); Red Cell Distribution Width 14.3 % (11.8-14.3); White Blood Cell 7.4 10^3/uL (4.4-10.8)
[2024-01-16 06:25] LABS: Alanine Aminotransferase 33 U/L (7-40); Albumin 4.4 g/dL (3.2-4.8); Alkaline Phosphatase 111 U/L (46-116); Anion Gap 11 (5-15); Aspartate Aminotransferase 21 U/L (13-40); BUN/Creatinine Ratio 17.3 (10.0-20.0); Blood Urea Nitrogen 17 mg/dL (9-23); Calcium 9.6 mg/dL (8.7-10.4); Carbon Dioxide 21 mmol/L (20-31); Chloride 109 mmol/L (98-107); Glucose 111 mg/dL (74-106); Potassium 3.6 mmol/L (3.5-5.1); Sodium 141 mmol/L (136-145)
[2024-01-16 06:26] LABS: Bilirubin, Total 0.3 mg/dL (0.2-1.0); Total Protein 6.4 g/dL (5.7-8.2)
[2024-01-16] MEDS: amLODIPine BESYLATE 5 MG TAB PO SCH (06:46)
[2024-01-16] MEDS ORDERED: amLODIPine BESYLATE 5 MG TAB PO SCH (10:00)
[2024-01-16] MEDS ORDERED: TOPIRAMATE 100 MG TAB PO SCH (10:00)
[2024-01-16] MEDS ORDERED: AML5T PO (12:23)
[2024-01-16] MEDS ORDERED: MET50T PO (12:23)
--- NOTE | 2024-01-16 14:56 | DVHDSRES ---
Discharge Summary Date of Admission Resident Creating Document: MAGGIE ABRAHAM RESIDENT Jan 15, 2024 at 01:27 Date of Discharge: Jan 16, 2024 Admitting Diagnosis migraine intractable hypertensive urgency Labs/Diagnostic Data: Laboratory Results Test 01/16/24 04:18 01/15/24 14:34 01/15/24 07:52 01/14/24 23:46 White Blood Count 7.4 10^3/uL (4.4-10.8) Red Blood Count 3.97 10^6/uL (4.0-5.20) Hemoglobin 12.8 g/dL (12.2-16.2) Hematocrit 38.3 % (36.0-46.0) Mean Corpuscular Volume 96.3 fL (80.0-100.0) Mean Corpuscular Hemoglobin 32.1 pg (28.0-32.0) Mean Corpuscular Hemoglobin Concent 33.3 g/dL (32.0-36.0) Red Cell Distribution Width 14.3 % (11.8-14.3) Platelet Count 275 10^3/uL (140-450) Mean Platelet Volume 7.6 fL (6.9-10.8) Neutrophils (%) (Auto) 46.0 % (37.0-80.0) Lymphocytes (%) (Auto) 41.1 % (10.0-50.0) Monocytes (%) (Auto) 9.1 % (0.0-12.0) Eosinophils (%) (Auto) 3.3 % (0.0-7.0) Basophils (%) (Auto) 0.5 % (0.0-2.0) Neutrophils # (Auto) 3.4 10 ^3/uL (1.6-8.6) Lymphocytes # (Auto) 3.0 10 ^3/uL (0.4-5.4) Monocytes # (Auto) 0.7 10 ^3/uL (0-1.3) Eosinophils # (Auto) 0.2 10 ^3/uL (0-0.8) Basophils # (Auto) 0 10 ^3/uL (0-0.2) Nucleated Red Blood Cells 0.1 % Sodium Level 141 mmol/L (136-145) Potassium Level 3.6 mmol/L (3.5-5.1) Chloride Level 109 mmol/L (98-107) Carbon Dioxide Level 21 mmol/L (20-31) Anion Gap 11 (5-15) Blood Urea Nitrogen 17 mg/dL (9-23) Creatinine 0.98 mg/dL (0.550-1.02) Glomerular Filtration Rate Calc 64 mL/min (>90) BUN/Creatinine Ratio 17.3 (10.0-20.0) Serum Glucose 111 mg/dL (74-106) Calcium Level 9.6 mg/dL (8.7-10.4) Total Bilirubin 0.3 mg/dL (0.2-1.0) Aspartate Amino Transferase (AST) 21 U/L (13-40) Alanine Aminotransferase (ALT) 33 U/L (7-40) Alkaline Phosphatase 111 U/L (46-116) Total Protein 6.4 g/dL (5.7-8.2) Albumin 4.4 g/dL (3.2-4.8) Urine Color Light-yellow (Yellow) Urine Clarity Clear (Clear) Urine pH 6.5 (5.0-9.0) Urine Specific [place] 1.018 (1.001-1.035) Urine Protein Negative (Negative) Urine Ketones Negative (Negative) Urine Blood Negative /uL (Negative) Urine Nitrite Negative (Negative) Urine Bilirubin Negative (Negative) Urine Urobilinogen Normal mg/dL (Negative) Urine Leukocyte Esterase 2+ /uL (Negative) Urine RBC 1 /hpf (0 - 4) Urine WBC 20 /hpf (0 - 5) Urine Squamous Epithelial Cells Few /hpf (<5) Urine Bacteria Few /hpf (None Seen) Urine Creatinine 109.18 mg/dL (30.0-125.0) Urine Protein/Creatinine Ratio 0.21 Urine Sodium 55 mmol/L (40-220) Urine Glucose Normal mg/dL (Normal) Urine Total Protein 22.4 mg/dL (1-14) Urine Opiates Screen Pos (NEGATIVE) Urine Fentanyl Screen Neg (NEGATIVE) Urine Barbiturates Screen Neg (NEGATIVE) Urine Phencyclidine Screen Neg (NEGATIVE) Urine Amphetamines Screen Neg (NEGATIVE) Urine Benzodiazepines Screen Neg (NEGATIVE) Urine Cocaine Screen Neg (NEGATIVE) Urine Cannabinoids Screen Neg (NEGATIVE) POC Glucose 141 mg/dl (70-106) Hemoglobin A1c 6.4 % A1C (<5.7) Other Laboratory Tests 01/16/24 04:18 Brief Hx & Hospital Course: 60-year-old female with past medical history of hypertension came for the worst headache of her life, the headache is in the left side throbbing sensation according to her 10-10 also radiated to the occipital side patient was taking Nurtec with no improvement ulcer at admission blood pressure was found in 192/110 Home meds: Amitriptyline the clot clot examined hydralazine indomethacin losartan methocarbamol metoprolol tizanidine topiramate zonisamide Head CT did not show any acute bleeding but chronic microvascular ischemic changes 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 difficult to control: antiHTN regimen was changed to: valsartan 320 mg daily, amlodipine 5 mg daily, hydralazine 50 mg TID, carvedilol 12.5 mg BID Pt will be discharge home, f/u in [place] clinic with readings of BPs and new medications GEN: Healthy appearing, well-developed, NAD. PSYCH: Good Judgment. AOx3. Normal memory, mood, and affect. HEENT -Head: normocephalic atraumatic, no facial trauma, neck is supple -Eyes: bilateral mydriasis -Ears: External ears are normal. Normal TMs. -Nose: Normal nares. -Mouth and throat: MMM. Normal gums, mucosa, palate,. Good dentition. NECK: Supple, with no masses. CV: RRR, no m/r/g. LUNGS: respiratory effort normal, speaks in full sentences, no tripod position, no accessory muscle use. Lungs clear to auscultation without rhonchi, wheezes, rales ABD: Soft, ND/NT. No evidence of fluid wave. No pulsatile masses on exam, rebound tenderness, Barker sign or pain over Mcburney's point. : N/A SKIN: Warm, well perfused. No skin rashes or abnormal lesions. MSK: No deformities or signs of scoliosis. Normal gait. EXT: No clubbing, cyanosis, or edema. NEURO: Ambulating with no limitations. Normal muscle strength and tone. No focal deficits. Case discussed with Dr Swenson Consults/Reason for consult neurology due to migraine Operations or Procedures CT HEAD WITHOUT CONTRAST Indication: hyeprtesive urgency severe headache EXAM DATE: 01/15/2024 09:38 AM COMPARISON: None TECHNIQUE: CT of the head without intravenous contrast. RADIATION DOSE: CTDIvol: 55.01 mGy, DLP: 881.89 mGy*cm FINDINGS: There is no intracranial hemorrhage. There is no extra-axial fluid, mass, mass effect or midline shift. The ventricles are midline and normal in size. Basilar cisterns are patent. Moderate periventricular and subcortical white matter chronic microvascular ischemic changes. 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 The paranasal sinuses and mastoids are well-pneumatized. Imaged portion of the orbits are unremarkable. IMPRESSION: 1. No intracranial hemorrhage or mass effect. 2. Moderate chronic microvascular ischemic changes. 3. 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 Recommend MRI brain to further characterize. Condition at Discharge: Stable Final Diagnosis/Problems List #Hypertensive urgency resolved #Migraine with aura #STEPHANIE probable VMN Discharge Disposition: Home Discharge Instruct/Medications Diet: Consistent carbohydrate, Cardiac 2g Na,low cholest Activity: No Restrictions, As Tolerated Follow Up/Referral: fu with pcp to recheck BPs Medications: see prescriptions Discharge Statement: "Patient was advised to return to the ER or call 911 if any headaches, dizziness, shortness of breath, chest pain, abdominal pain, bleeding, fevers, or worsening of medical condition. Patient was counseled about treatment plan, medications, possible side effects, patientverbalized understanding. All questions were answered to the best of my ability. This discharge took greater then 30 minutes in planning, reviewing documentation, counseling the patient, and discussing with other team members." ASSESSMENT ASSESSMENT Assessment hypertensive urgency migraines Date of Service: Jan 16, 2024 Billing Provider: YUMIKO SWENSON MD Common Visit Codes: 49741-EQR/OBS DISCH DAY >30min MAGGIE ABRAHAM RESIDENT Jan 16, 2024 14:56 YUMIKO SWENSON MD Jan 16, 2024 20:04
[2024-01-16] MEDS ORDERED: VALS1TAB57 PO (16:10)
[2024-01-16] MEDS ORDERED: HYDR25TA87 PO (16:10)
[2024-01-16] MEDS ORDERED: CARV-216 PO (16:10)
[2024-01-16] MEDS: hydrALAZINE HCL 25 MG TAB PO ONE (16:58)
[2024-01-16] MEDS: hydrALAZINE HCL 25 MG TAB PO SCH (21:58)
[2024-01-16] MEDS: CARVEDILOL 12.5 MG TAB PO SCH (21:58)
[2024-01-17 00:53] VITALS: BP 149/94; PULSE 81; RESP 20; TEMP 98; O2SAT 96
[2024-01-17] MEDS: hydrALAZINE HCL 20 MG/ML VL IV PRN (04:33)
[2024-01-17 05:00] VITALS: BP 166/100; PULSE 87; RESP 20; TEMP 98.1; O2SAT 97
--- NOTE | 2024-01-17 07:02 | DVHPNRES ---
Progress Note Date Seen: Jan 17, 2024 Resident Creating Document: MAGGIE ABRAHAM RESIDENT Has the PT tested + for MRSA If YES, has PT been informed?: No Medical Necessity Reason Pt with a Central, PICC or Fol: No Subjective Review of Systems 60-year-old female with past medical history of hypertension came for the worse headache of her life the headache is in the left side throbbing sensation according to her 10-10 also radiated to the occipital side patient was taking Nurtec with no improvement ulcer at admission blood pressure was found in 192/[address] did not show any acute bleeding but chronic microvascular ischemic changes 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 Neurology was consulted who optimized pain management At the moment pain is subsiding Home meds: Amitriptyline the clot clot examined hydralazine indomethacin losartan methocarbamol metoprolol tizanidine topiramate zonisamide Objective vital signs Vital Sign Date Time Temp Pulse Resp B/P (MAP) Pulse Ox O2 Delivery O2 Flow Rate FiO2 01/17/24 06:08 152/88 01/17/24 05:00 98.1 87 20 97 98.1 01/16/24 20:00 Room Air* 0 21 Total Intake and Output 01/16/24 01/16/24 01/17/24 15:00 23:00 07:00 Intake Total 580 ml 600 ml Output Total 650 ml 1000 ml Balance -70 ml -400 ml medications Current Medications Medications Dose Ordered Sig/Yaniv Route Start Time Stop Time Status Last Admin Dose Admin Sumatriptan Succinate 25 mg Q2HP PRN PO 01/15/24 01:15 01/17/24 00:27 25 MG Sodium Chloride 1,000 ml @ 60 mls/hr [id number] IV 01/15/24 01:15 01/16/24 06:36 60 MLS/HR Acetaminophen/ Hydrocodone Bitart 1 tab Q4HP PRN PO 01/15/24 01:15 01/16/24 01:40 1 TAB Docusate Sodium 100 mg BIDPRN PRN PO 01/15/24 01:15 Ketorolac Tromethamine 30 mg Q6HPRN PRN IV 01/15/24 08:30 01/20/24 08:29 01/17/24 00:26 30 MG Diphenhydramine HCl 25 mg Q12HR IV 01/15/24 12:30 01/16/24 21:57 25 MG Acetaminophen 1,000 mg TID PO 01/15/24 14:00 01/17/24 05:56 1,000 MG Topiramate 100 mg DAILY PO 01/15/24 14:00 01/16/24 09:03 100 MG Amlodipine Besylate 10 mg DAILY PO 01/16/24 06:30 01/16/24 09:02 10 MG Carvedilol 12.5 mg Q12HR PO 01/16/24 22:00 01/16/24 21:58 12.5 MG Valsartan 320 mg DAILY PO 01/17/24 10:00 Hydralazine HCl 50 mg TID PO 01/16/24 22:00 01/17/24 06:08 50 MG Hydralazine HCl 10 mg Q6HP PRN IV 01/16/24 18:45 01/17/24 04:33 10 MG Examination GEN: Healthy appearing, well-developed, NAD. PSYCH: Good Judgment. AOx3. Normal memory, mood, and affect. HEENT -Head: normocephalic atraumatic, no facial trauma, neck is supple -Eyes: bilateral mydriasis -Ears: External ears are normal. Normal TMs. -Nose: Normal nares. -Mouth and throat: MMM. Normal gums, mucosa, palate,. Good dentition. NECK: Supple, with no masses. CV: RRR, no m/r/g. LUNGS: respiratory effort normal, speaks in full sentences, no tripod position, no accessory muscle use. Lungs clear to auscultation without rhonchi, wheezes, rales ABD: Soft, ND/NT. No evidence of fluid wave. No pulsatile masses on exam, rebound tenderness, Barker sign or pain over Mcburney's point. : N/A SKIN: Warm, well perfused. No skin rashes or abnormal lesions. MSK: No deformities or signs of scoliosis. Normal gait. EXT: No clubbing, cyanosis, or edema. NEURO: Ambulating with no limitations. Normal muscle strength and tone. No focal deficits. laboratory and microbiology Laboratory Tests 01/16/24 04:18 Test 01/16/24 04:18 Range/Units Serum Glucose 111 H 74-106 mg/dL Problem List/Assessment/Plan Problem List/Assessment/Plan #Hypertensive urgency resolved #Migraine with aura #STEPHANIE probable VMN Pain managment: tylenol scheduled, benadryl scheduled and topiramte yaniv PRN: ketorolac, triptan BP managment: Amlodipine carvedilol hydralazine valsartan BP finally stabilized and patient can be discharge safely normal hba1c Case discussed with Dr Swenson Time spent on care 23min Plan discussed with: Patient, Other (rn) My Orders My Orders Orders - MAGGIE ABRAHAM Procedure Category Date Status Time Discharge DISCHARGE 01/16/24 Transmitted 11:45 Schedule For Dc RITO 01/16/24 In Process Clinic F/U 16:15 Hydralazine Injection PHA 01/16/24 In Process (Apresoline Inject 18:45 Date of Service: Jan 17, 2024 Billing Provider: YUMIKO SWENOSN MD Common Visit Codes: 31587-LUK/OBS DISCH DAY >30min MAGGIE ABRAHAM Jan 17, 2024 07:02 YUMIKO SWENSON MD Jan 18, 2024 08:11
[2024-01-17 08:00] VITALS: PULSE 94; RESP 18; O2SAT 96
[2024-01-17 09:00] VITALS: BP 161/88; PULSE 94; RESP 18; TEMP 97.6; O2SAT 96
[2024-01-17] MEDS: VALSARTAN 80 MG TAB PO SCH (09:24)
[2024-01-17] MEDS: LORazepam 2MG/ML-1ML VIAL IM ONE (11:37)
[2024-01-17 12:42] VITALS: BP 145/78; PULSE 81; RESP 19; TEMP 97.2; O2SAT 96
== END 2024-01-17 15:05 | disposition home or self-care (01) | DRG 304 ==
LOC: ER 16:10 → OVERFLOW 01-15 01:27 → CENTRAL 01-15 01:29
PROVIDERS: ADMIT Student in an Organized Health Care Education/Training Program; ATTEND Student in an Organized Health Care Education/Training Program
DX: I16.0 Hypertensive urgency (principal); N17.0 Acute kidney failure with tubular necrosis; E11.65 Type 2 diabetes mellitus with hyperglycemia; G43.111 Migraine with aura, intractable, with status migrainosus; Z79.4 Long term (current) use of insulin; Z79.899 Other long term (current) drug therapy
CPT/HCPCS: 36415; 70450; 80048; 80053; 80307; 81001; 82570; 82962; 83036; 84156; 84300; 85025; G0378; J1100; J1815; J1885

== ENCOUNTER 2025-01-16 12:24 | Inpatient (IN) | payer MEDICAID, MEDICARE ==
[~2025-01-16] VITALS: Ht 175.3 cm; Wt 90.5 kg
[~2025-01-16 12:24] MED LIST: AMIT25TA20 PO; AML5T PO; CARV-216 PO; DICY-89 PO; HYDR25TA87 PO; METH-1182 PO; TIZA4CAP PO; TOPI100T68 PO; VALS1TAB57 PO; ZONI100C43 PO
--- NOTE | 2025-01-16 12:37 | ED.PDOC ---
History of Present Illness HPI Comments This is a 65 year old female SAMANTHAA presenting to the ED with chief complaint of flu-like illness. Patient reports that she has been experiencing a cough with associated nasal congestion for about a week now with recent associated headache, dizziness, fever, and urinary frequency. Patient relays that she has d ifficulty ambulating on her own, needing assistance to walk to the EMS [facility]. Patient states that she had a chest XR ordered by her PCP recently, but has been unable to go. Patient denies any N/V/D, abdominal pain, chest pain, SOB, syncope, or dysuria. Time Seen by MD: 12:35 Reviewed Notes: Nurses Notes, Nurse Outreach Case Manager Notes, Medications, Allergies Allergies: Coded Allergies: NO KNOWN ALLERGIES (Unverified , 01/14/24) Home Meds Active Scripts Valsartan (Valsartan) 80 Mg Tab, 320 MG PO DAILY for 30 Days, #120 TAB Prov:ALEAH HARRELL [facility] 01/16/24 Hydralazine HCl (Hydralazine HCl) 25 Mg Tab, 50 MG PO TID for 30 Days, #180 TAB Prov[facility] 01/16/24 Carvedilol (COREG) 12.5 Mg Tab, 12.5 MG PO Q12HR for 30 Days, #60 TAB Prov:SHARRIALEAH [facility] 01/16/24 Amlodipine Besylate (NORVASC TABLET) 5 Mg Tb, 10 MG PO DAILY for 30 Days, #60 TAB Prov:SHARRIALEAH [facility] 01/16/24 Reported Medications Zonisamide (Zonisamide) 100 Mg Cap, 100 MG PO TID, CAP 01/15/24 Topiramate (Topiramate) 100 Mg Tab, 100 MG PO TID for 30 Days, MG 01/15/24 Tizanidine Hydrochloride (Zanaflex) 4 Mg Cap, 1 CAP PO TID, #90 CAP 01/15/24 Methocarbamol (Methocarbamol) 750 Mg Tab, 750 MG PO TID, TAB 01/15/24 Amitriptyline Hcl (Amitriptyline Hcl) 25 Mg Tab, 50 MG PO DAILY for 30 Days, MG 01/15/24 Dicyclomine Hcl (Dicyclomine Hcl) 10 Mg Cap, 10 MG PO BID for 30 Days, MG 01/15/24 Information Source: Patient, Emergency Med Personnel Mode of Arrival: EMS Severity: Moderate Timing: Days Duration: Since onset Prehospital treatment: None Past Medical History PAST MEDICAL HISTORY: DM, HTN Past Medical History (Other): Migraines Surgical History: Surgical History (Other): Spinal fusion 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 History: Denies all 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 ASSOCIATE Hx Family History Family History: Unknown Social History Smoker: Non-Smoker Alcohol: Denies ETOH Use Drugs: Denies Drug Use Lives In: Home Constitutional: reports: fever; denies: chills, diaphoresis, fatigue, malaise, sweats, weakness, others EENTM: reports: nose congestion; denies: blurred vision, double vision, ear bleeding, ear discharge, ear drainage, ear pain, ear ringing, eye pain, eye redness, hearing loss, mouth pain, mouth swelling, nasal discharge, nose bleeding, nose pain, photophobia, tearing, throat pain, throat swelling, voice changes, others Respiratory: reports: cough; denies: hemoptysis, orthopnea, SOB at rest, shortness of breath, SOB with excertion, stridor, wheezing, others Cardiovascular: denies: chest pain, dizzy spells, diaphoresis, Dyspnea on exertion, edema, irregular heart beat, left arm pain, lightheadedness, palpitations, PND, syncope, others Gastrointestinal: denies: abdomen distended, abdominal pain, blood streaked bowels, constipated, diarrhea, dysphagia, difficulty swallowing, hematemesis, melena, nausea, poor appetite, poor fluid intake, rectal bleeding, rectal pain, vomiting, others Genitourinary: reports: frequency; denies: abnormal vagina bleeding, burning, dyspareunia, dysuria, flank pain, hematuria, incontinence, pain, , vagina discharge, urgency, others Neurological: reports: dizziness, headache; denies: fainting, left sided numbness, left sided weakness, numbness, paresthesia, pre-existing deficit, right sided numbness, right sided weakness, seizure, speech problems, tingling, tremors, weakness, others Musculoskeletal: denies: back pain, gout, joint pain, joint swelling, muscle pain, muscle stiffness, neck pain, others Integumetry: denies: bruises, change in color, change in hair/nails, dryness, laceration, lesions, lumps, rash, wounds, others Allergic/Immunocompromised: denies: Difficulty Healing, Frequent Infections, Hives, Itching, others Hematologic/Lymphatic: denies: anemia, blood clots, easy bleeding, easy bruising, swollen glands, others Endocrine: denies: excessive hunger, excessive sweating, excessive thirst, excessive urination, flushing, intolerance to cold, intolerance to heat, un explained weight gain, unexplained weight loss, others Psychiatric: denies: anxiety, bipolar disorder, depression, hopeless, panic disorder, schizophrenia, sleepless, suicidal, others All Other Systems: Reviewed and Negative Physical Exam General Appearance: Moderate Distress HEENT: Normal ENT Inspection, Pharynx Normal, TMs Normal Neck: Full Range of Motion, Non-Tender, Normal, Normal Inspection Respiratory: Chest Non-Tender, Lungs Clear, No Accessory Muscle Use, No Respiratory Distress, Normal Breath Sounds Cardiovascular: No Edema, No JVD, No Murmur, No Gallop, Normal Peripheral Pulses, Regular Rate/Rhythm Breast Exam: Deferred Gastrointestinal: No Organomegaly, Non Tender, No Pulsatile Mass, Normal Bowel Sounds, Soft Genitalia: Deferred Pelvic: Deferred Rectal: Deferred Extremities: No calf tenderness, Normal capillary refill, Normal inspection, Normal range of motion, Non-tender, No pedal edema Musculoskeletal : Apperance: Normal Neurologic: Alert, 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 Was a procedure done?: No Differential Dx Considerations may include: Anemia Electrolyte imbalance X-Ray, Labs, Meds, VS Vital Signs Date Time Temp Pulse Resp B/P (MAP) Pulse Ox O2 Delivery O2 Flow Rate FiO2 01/16/25 13:57 82 19 95 Room Air* 0 21 01/16/25 13:57 97.6 82 19 65/42 (50) 95 97.6 01/16/25 12:25 97.8 78 18 116/70 97 97.8 Lab Test 01/16/25 12:54 Range/Units White Blood Count 9.1 4.4-10.8 10^3/uL Red Blood Count 3.62 L 4.0-5.20 10^6/uL Hemoglobin 11.0 L 12.2-16.2 g/dL Hematocrit 32.6 L 36.0-46.0 % Mean Corpuscular Volume 90.1 80.0-100.0 fL Mean Corpuscular Hemoglobin 30.3 28.0-32.0 pg Mean Corpuscular Hemoglobin Concent 33.7 32.0-36.0 g/dL Red Cell Distribution Width 14.8 H 11.8-14.3 % Platelet Count 513 H 140-450 10^3/uL Mean Platelet Volume 6.8 L 6.9-10.8 fL Neutrophils (%) (Auto) 67.3 37.0-80.0 % Lymphocytes (%) (Auto) 17.6 10.0-50.0 % Monocytes (%) (Auto) 11.0 0.0-12.0 % Eosinophils (%) (Auto) 3.5 0.0-7.0 % Basophils (%) (Auto) 0.6 0.0-2.0 % Neutrophils # (Auto) 6.1 1.6-8.6 10 ^3/uL Lymphocytes # (Auto) 1.6 0.4-5.4 10 ^3/uL Monocytes # (Auto) 1.0 0-1.3 10 ^3/uL Eosinophils # (Auto) 0.3 0-0.8 10 ^3/uL Basophils # (Auto) 0.1 0-0.2 10 ^3/uL Nucleated Red Blood Cells 0.0 % Sodium Level 133 L 136-145 mmol/L Potassium Level 4.2 3.5-5.1 mmol/L Chloride Level 99 98-107 mmol/L Carbon Dioxide Level 23 20-31 mmol/L Anion Gap 11 5-15 Blood Urea Nitrogen 40 H 9-23 mg/dL Creatinine 1.64 H 0.550-1.02 mg/dL Glomerular Filtration Rate Calc 35 >90 mL/min BUN/Creatinine Ratio 24.4 H 10.0-20.0 Serum Glucose 181 H 74-106 mg/dL Calcium Level 9.9 8.7-10.4 mg/dL Troponin I High Sensitivity < 3 L </=34 ng/L Current Medications Medications (Trade) Dose Ordered Sig/Yaniv Route Start Time Stop Time Status Last Admin Sodium Chloride 1,000 ml @ 1,000 mls/hr Q1H ONCE IV 01/16/25 12:45 01/16/25 13:44 DC 01/16/25 12:45 [place] [id number] Ph: [phone] DIAGNOSTIC IMAGING Diagnostic Imaging Report : [id number] Signed PATIENT: MIKE FONSECA ACCT: [id number] UNIT: [id number] : 1960 LOC: ER ROOM / BED: / AGE / SEX: 65 / F ADM STATUS: REG ER SERVICE 1234 ORDERING PHYSICIAN: CHRISTIE RODRIGUEZ MD PROCEDURE(s): CXRP - CHEST PORTABLE REASON: sob ORDER NUMBER(s): [id number], ACCESSION NUMBER(s): [id number] EXAM: XY CHEST PORTABLE Indication: sob Technique: Single frontal view of the chest was obtained Comparison: None FINDINGS: Lines and Tubes: None Lungs: Linear atelectasis of the left lower lung. Pleura: No effusion. No pneumothorax. Cardiomediastinal contours: Unremarkable Bones: No acute osseous abnormality. IMPRESSION: No acute cardiopulmonary disease. ATED BY: TED CLEMENS MD DICTATED DATE/TIME: 01/16/25 1304 SIGNED BY: TED CLEMENS MD SIGNED DATE/TIME: 01/16/25 1304 CC: Patient alert. Generalized weakness. Chest x-ray reviewed does not show any acute process. Vitals stable. Blood sugar slightly elevated. Cardiac marker within normal limits. Kidney function elevated. Establish intravenous access. Was given fluids. Explained to the patient. Continue monitoring. Time of 1ST Reevaluation: 13:35 Reevaluation 1ST: Unchanged Patient Education/Counseling: Diagnosis, Treatment Family Education/Counseling: No Family Present SEPSIS Sepsis Screen Physician Orders Chest Portable (01/16/25 12:34) Urinalysis (01/16/25 12:34) Blood Culture (01/16/25 14:09) Lactic Acid W/ Reflex Order (01/16/25 14:09) Change Midline Dressing Q7 Day QWEEKLY (01/16/25 14:25) Insert Midline (01/16/25 14:25) Vital Signs Date Time Temp Pulse Resp B/P (MAP) Pulse Ox O2 Delivery O2 Flow Rate FiO2 01/16/25 13:57 82 19 95 Room Air* 0 21 01/16/25 13:57 97.6 82 19 65/42 (50) 95 97.6 01/16/25 12:25 97.8 78 18 116/70 97 97.8 Laboratory Tests Test 01/16/25 12:54 White Blood Count 9.1 10^3/uL (4.4-10.8) Medications Medications Dose Ordered Sig/Yaniv Route Start Time Stop Time Status Last Admin Dose Admin Sodium Chloride 1,000 ml @ 1,000 mls/hr Q1H ONCE IV 01/16/25 12:45 01/16/25 13:44 DC 01/16/25 12:45 Departure 1 Departure Time of Disposition: 14:37 Impression: Primary Impression: Acute tubular necrosis Additional Impression: Diabetes mellitus Qualified Codes: E13.69 - Other specified diabetes mellitus with other specified complication Disposition: ADMITTED INPATIENT Admit to: Med Surg Condition: Guarded Critical Care Note Critical Care Time?: No Stability Stability form required: No Heart Score Heart Score: Heart Score Response (Comments) Value History N/A 0 EKG N/A 0 Age N/A 0 Risk Factors N/A 0 Troponin N/A 0 Total 0 I personally scribed for CHRISTIE RODRIGUEZ MD ([email or web address]) on 01/16/25 at 12:37. Electronically submitted by Jason Zapata ([email or web address]). I personally scribed for CHRISTIE RODRIGUEZ MD ([email or web address]) on 01/16/25 at 14:17. Electronically submitted by Jason Zapata ([email or web address]). CHRISTIE RODRIGUEZ MD Jan 16, 2025 12:37
[2025-01-16] MEDS: SODIUM CHLORIDE 0.9% 1,000 ML IV ONE (12:45)
[2025-01-16 13:05] LABS: Hemoglobin 11.0 g/dL (12.2-16.2)
--- NOTE | 2025-01-16 13:06 | DVH ---
EXAM: XY CHEST PORTABLE Indication: sob Technique: Single frontal view of the chest was obtained Comparison: None FINDINGS: Lines and Tubes: None Lungs: Linear atelectasis of the left lower lung. Pleura: No effusion. No pneumothorax. Cardiomediastinal contours: Unremarkable Bones: No acute osseous abnormality. IMPRESSION: No acute cardiopulmonary disease.
[2025-01-16 13:07] LABS: Hematocrit 32.6 % (36.0-46.0); Mean Corpuscular Hemoglobin 30.3 pg (28.0-32.0); Mean Corpuscular Volume 90.1 fL (80.0-100.0); Nucleated Red Blood Cells % 0.0 %
[2025-01-16 13:16] LABS: Chloride 99 mmol/L (98-107); Potassium 4.2 mmol/L (3.5-5.1)
[2025-01-16 13:17] LABS: Anion Gap 11 (5-15); Calcium 9.9 mg/dL (8.7-10.4); Carbon Dioxide 23 mmol/L (20-31); Sodium 133 mmol/L (136-145)
[2025-01-16 13:22] LABS: BUN/Creatinine Ratio 24.4 (10.0-20.0)
[2025-01-16 13:28] LABS: Blood Urea Nitrogen 40 mg/dL (9-23); Glucose 181 mg/dL (74-106)
[2025-01-16 13:57] VITALS: PULSE 82; RESP 19; O2SAT 95
--- NOTE | 2025-01-16 15:13 | DVHHP2 ---
History of Present Illness Reason for Visit: Generalized weakness History of Present Illness Tanisha Streeter is a 65-year-old female with past medical history of diabetes, hypertension, hyperlipidemia, migraines, , spinal fusion, and neck surgery who presents to the ED with nasal congestion, headache, dizziness, feve r, urinary frequency, and weakness x2 weeks. Patient reports that there was a chest x-ray ordered by her PCP recently but was unable to make the appointment. Also reporting that she has been needing assistance to walk. Patient also reports that she has been having a sore throat for the last 2 weeks. She does report that she got her COVID and flu vaccine in October. Patient reports that her flat locker is in [place] [address] [place]. Patient denies any recent trauma or injury, recent travels, recent ingestion of spoiled food, chest pain, chills, abdominal pain, nausea, vomiting, diarrhea, lightheadedness, or weakness. Patient reports that she is compliant with her medications and ambulates without any DMEs. Cardiovascular: HTN, hyperipidemia SAW OFFBEARER: Migraine Endocrine: Diabetes Past Surgical History: , Other (Spinal fusion and neck surgery) Family History: Other (Mom from a heart attack.) Smoke: No ALCOHOL: none Drugs: None Lives: with Family Domestic Violence: Neg Review of Systems Constitutional: Yes: Fever, Weakness, Other ENT: Nose congestion Genitourinary: Frequency Allergies: Coded Allergies: NO KNOWN ALLERGIES (Unverified , 01/14/24) Exam Vital Signs Vital Signs Date Time Temp Pulse Resp B/P (MAP) Pulse Ox O2 Delivery O2 Flow Rate FiO2 01/16/25 13:57 82 19 95 Room Air* 0 21 01/16/25 13:57 97.6 65/42 (50) 97.6 General Appearance: Alert, Oriented X3, Cooperative, No acute distress HEENT: Atraumatic, PERRLA, EOMI, Mucous membr. moist/pink Respiratory: Normal air movement Cardiovascular: Regular rate, Normal S1, Normal S2, No murmurs Abdominal: Normal bowel sounds, Soft Extremities: No clubbing, No cyanosis, No edema Skin: No significant lesion Neuro: Normal speech, Strength at 5/5 X4 ext, Normal tone, Sensation intact Psych/Mental Status: Mental status NL, Mood NL Labs/Xrays Labs Test 01/16/25 14:27 01/16/25 12:54 Range/Units White Blood Count 9.1 4.4-10.8 10^3/uL Red Blood Count 3.62 L 4.0-5.20 10^6/uL Hemoglobin 11.0 L 12.2-16.2 g/dL Hematocrit 32.6 L 36.0-46.0 % Mean Corpuscular Volume 90.1 80.0-100.0 fL Mean Corpuscular Hemoglobin 30.3 28.0-32.0 pg Mean Corpuscular Hemoglobin Concent 33.7 32.0-36.0 g/dL Red Cell Distribution Width 14.8 H 11.8-14.3 % Platelet Count 513 H 140-450 10^3/uL Mean Platelet Volume 6.8 L 6.9-10.8 fL Neutrophils (%) (Auto) 67.3 37.0-80.0 % Lymphocytes (%) (Auto) 17.6 10.0-50.0 % Monocytes (%) (Auto) 11.0 0.0-12.0 % Eosinophils (%) (Auto) 3.5 0.0-7.0 % Basophils (%) (Auto) 0.6 0.0-2.0 % Neutrophils # (Auto) 6.1 1.6-8.6 10 ^3/uL Lymphocytes # (Auto) 1.6 0.4-5.4 10 ^3/uL Monocytes # (Auto) 1.0 0-1.3 10 ^3/uL Eosinophils # (Auto) 0.3 0-0.8 10 ^3/uL Basophils # (Auto) 0.1 0-0.2 10 ^3/uL Nucleated Red Blood Cells 0.0 % Sodium Level 133 L 136-145 mmol/L Potassium Level 4.2 3.5-5.1 mmol/L Chloride Level 99 98-107 mmol/L Carbon Dioxide Level 23 20-31 mmol/L Anion Gap 11 5-15 Blood Urea Nitrogen 40 H 9-23 mg/dL Creatinine 1.64 H 0.550-1.02 mg/dL Glomerular Filtration Rate Calc 35 >90 mL/min BUN/Creatinine Ratio 24.4 H 10.0-20.0 Serum Glucose 181 H 74-106 mg/dL Calcium Level 9.9 8.7-10.4 mg/dL Troponin I High Sensitivity < 3 L </=34 ng/L EXAM: XY CHEST PORTABLE Indication: sob Technique: Single frontal view of the chest was obtained Comparison: None FINDINGS: Lines and Tubes: None Lungs: Linear atelectasis of the left lower lung. Pleura: No effusion. No pneumothorax. Cardiomediastinal contours: Unremarkable Bones: No acute osseous abnormality. IMPRESSION: No acute cardiopulmonary disease. COMPUTERIZED TOMOGRAPHY OF THE HEAD WITHOUT CONTRAST REASON FOR STUDY: headache COMPARISON: CT HEAD WITHOUT CONTRAST on DOS: 01/15/24 TECHNIQUE: Helical tomographic scans were obtained through the brain. 2-D coronal and sagittal reformatted images are provided. Radiation optimization: All CT scans at this facility use at least one of these dose optimization techniques: Automated exposure control mA and/or kV adjustment per patient size (includes targeted exams where dose is matched to clinical indication) or iterative reconstruction. RADIATION DOSE: CTDI: 55 mGy DLP: 879 mGy-cm FINDINGS: No suspicious intracranial hyperdensity to suggest acute blood. There are old lacunar infarcts in bilateral basal ganglia. There is age-indeterminate hypodensity in bilateral external capsules. There may be some volume gain in the left external capsule making acute to subacute infarct more likely. There is no midline shift. There is mild generalized volume loss with compensatory enlargement of the CSF spaces. There is no hydrocephalus. The suprasellar cistern is intact. There are scattered periventricular and deep white matter hypodensities that are most consistent with chronic microangiopathic changes. The calvarium is intact. There is near-complete opacification of the right maxillary sinus. There is moderate mucosal disease in the ethmoid air cells and right frontal sinus. The visualized mastoid air cells are grossly clear. IMPRESSION: No acute intracranial hemorrhage. Old bilateral basal ganglia lacunar infarcts. Possible acute to subacute left external capsule infarct. Further evaluation with brain MRI is recommended without and with contrast to rule out an underlying mass lesion. Mild generalized volume loss with chronic small vessel ischemic change. Right maxillary, ethmoid, and right frontal sinus mucosal disease. Correlate clinically for acute sinusitis. SEPSIS Sepsis Screen Date sepsis recognized/suspect: Jan 16, 2025 Time Sepsis recognized/suspect: 1250 Recent Procedure: No On Antibiotic Therapy: No Respiratory Rate >20: No Heart Rate >90: No Temp<36 C (96.8 F) or >38.3 C: No SBP <90 or MAP <65 mmHG: Yes New Acute Mental Status Change: No Is the patient on CPAP, BIPAP,: No Physician Orders Chest Portable (01/16/25 12:34) Urinalysis (01/16/25 12:34) Blood Culture (01/16/25 14:09) Lactic Acid W/ Reflex Order (01/16/25 14:09) Change Midline Dressing Q7 Day QWEEKLY (01/16/25 14:25) Insert Midline (01/16/25 14:25) Head Without Contrast (01/16/25 14:40) Vital Signs Date Time Temp Pulse Resp B/P (MAP) Pulse Ox O2 Delivery O2 Flow Rate FiO2 01/16/25 13:57 82 19 95 Room Air* 0 21 01/16/25 13:57 97.6 82 19 65/42 (50) 95 97.6 01/16/25 12:25 97.8 78 18 116/70 97 97.8 Laboratory Tests Test 01/16/25 12:54 01/16/25 14:27 White Blood Count 9.1 10^3/uL (4.4-10.8) Lactic Acid Level Pending Medications Medications Dose Ordered Sig/Yaniv Route Start Time Stop Time Status Last Admin Dose Admin Sodium Chloride 1,000 ml @ 1,000 mls/hr Q1H ONCE IV 01/16/25 12:45 01/16/25 13:44 DC 01/16/25 12:45 1,000 MLS/HR Assessment/Plan Assessment/Plan Assessment Generalized weakness Acute sinusitis STEPHANIE on CKD Obesity History of diabetes History of hypertension History of migraines History of History of spinal fusion History of neck surgery History of hyperlipidemia Plan Admit to med surge Flonase Antiemetics Pain management Hemoglobin A1c ISS and Accu-Cheks Chest x-ray CT head NS 1 L given ED Lactic Blood cultures UA Chest x-ray Troponin CT head noted UDS Flu test COVID test IV fluids Diet Home medications reconciled DVT prophylaxis-SCDs PUD prophylaxis-indicated no history of GERD or GI bleed Discussed plan of care with patient and nurse Consider Nephro consult if creatinine does not improve [id number] Preventive counseling healthy eating habits, physical activity, and regular checkups Plan discussed with: Patient Date of Service: Jan 16, 2025 Billing Provider: LUIS MIGUEL JON Common Visit Codes: [id number] INP/OBS CARE (HIGH) Secondary Visit Codes: [id number] COUNSELING IND LUIS MIGUEL JON 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
[2025-01-16] MEDS ORDERED: DEXTROSE (50%) 50ML SYRG IV PRN (15:15)
[2025-01-16] MEDS ORDERED: ONDANSETRON HCL 4 MG/2 ML VIAL IV PRN (15:15)
[2025-01-16] MEDS: SODIUM CHLORIDE 0.9% 1,000 ML IV SCH (15:20)
[2025-01-16] MEDS: HYDROcodone-ACET 10/325MG TAB PO ONE (15:20)
--- NOTE | 2025-01-16 15:56 | DVH ---
COMPUTERIZED TOMOGRAPHY OF THE HEAD WITHOUT CONTRAST REASON FOR STUDY: headache COMPARISON: CT HEAD WITHOUT CONTRAST on DOS: 01/15/24 TECHNIQUE: Helical tomographic scans were obtained through the brain. 2-D coronal and sagittal reformatted images are provided. Radiation optimization: All CT scans at this facility use at least one of these dose optimization techniques: Automated exposure control mA and/or kV adjustment per patient size (includes targeted exams where dose is matched to clinical indication) or iterative reconstruction. RADIATION DOSE: CTDI: 55 mGy DLP: 879 mGy-cm FINDINGS: No suspicious intracranial hyperdensity to suggest acute blood. There are old lacunar infarcts in bilateral basal ganglia. There is age-indeterminate hypodensity in bilateral external capsules. There may be some volume gain in the left external capsule making acute to subacute infarct more likely. There is no midline shift. There is mild generalized volume loss with compensatory enlargement of the CSF spaces. There is no hydrocephalus. The suprasellar cistern is intact. There are scattered periventricular and deep white matter hypodensities that are most consistent with chronic microangiopathic changes. The calvarium is intact. There is near-complete opacification of the right maxillary sinus. There is moderate mucosal disease in the ethmoid air cells and right frontal sinus. The visualized mastoid air cells are grossly clear. IMPRESSION: No acute intracranial hemorrhage. Old bilateral basal ganglia lacunar infarcts. Possible acute to subacute left external capsule infarct. Further evaluation with brain MRI is recommended without and with contrast to rule out an underlying mass lesion. Mild generalized volume loss with chronic small vessel ischemic change. Right maxillary, ethmoid, and right frontal sinus mucosal disease. Correlate clinically for acute sinusitis.
[2025-01-16] MEDS: InsuLIN REG 1unit/0.01ml Soln (100units/ml) SC SCH (17:00)
[2025-01-16] MEDS: ACCU-CHEK COMFORT CURVE STRIP VI SCH (17:16)
[2025-01-16 18:32] LABS: Opiate Scree,Urine Neg (NEGATIVE); Phencyclidine Screen, Urine Neg (NEGATIVE)
[2025-01-16 18:33] LABS: Urine Protein, UAD TRACE (Negative)
[2025-01-16 18:34] LABS: Amphetamine Screen, Urine Neg (NEGATIVE); Barbiturate Scree,Urine Neg (NEGATIVE); Benzodiazephine Screen, Urine Neg (NEGATIVE); Cannabinoid Screen, Urine Neg (NEGATIVE); Cocaine Screen, Urine Neg (NEGATIVE)
[2025-01-16 18:39] LABS: COVID19 ANTIGEN SOFIA FIA NEGATIVE (NEGATIVE)
[2025-01-16 19:56] VITALS: BP 138/82; PULSE 119; RESP 19; TEMP 97.6; O2SAT 98
[2025-01-16 21:00] VITALS: BP 138/82; PULSE 119; RESP 19; TEMP 97.6; O2SAT 98
[2025-01-16] MEDS: FLUTICASONE PROP NASAL SPR 0.05 % (50MCG) 16GM EACHNOSTRI SCH (21:26)
[2025-01-16] MEDS: ACETAMINOPHEN 325 MG TAB PO PRN (21:27)
[2025-01-16] MEDS: TOPIRAMATE 100 MG TAB PO SCH (21:27)
[2025-01-16] MEDS: METHOCARBAMOL 500 MG TAB PO SCH (21:28)
[2025-01-16] MEDS: TIZANIDINE HYDROCHLORIDE 4 MG PO SCH (21:33)
[2025-01-16] MEDS ORDERED: ROSU10TA16 PO (23:11)
[2025-01-16] MEDS ORDERED: GLIP5TAB21 PO (23:11)
[2025-01-16] MEDS: HYDROcodone-ACET 7.5/325MG TAB PO PRN (23:45)
[2025-01-17] VITALS (8 sets, daily range): BP systolic 120–180; BP diastolic 87–104; PULSE 115–128; RESP 16–20; TEMP 97.9–98.6; O2SAT 95–99
[2025-01-17 06:34] LABS: Hemoglobin 12.3 g/dL (12.2-16.2); Nucleated Red Blood Cells % 0.1 %
[2025-01-17 06:36] LABS: Hematocrit 35.8 % (36.0-46.0); Mean Corpuscular Hemoglobin 30.6 pg (28.0-32.0); Mean Corpuscular Volume 88.8 fL (80.0-100.0)
[2025-01-17 06:48] LABS: Alanine Aminotransferase 122 U/L (7-40); Albumin 4.7 g/dL (3.2-4.8); Alkaline Phosphatase 122 U/L (46-116); Anion Gap 15 (5-15); BUN/Creatinine Ratio 28.6 (10.0-20.0); Blood Urea Nitrogen 26 mg/dL (9-23); Calcium 10.5 mg/dL (8.7-10.4); Carbon Dioxide 20 mmol/L (20-31); Chloride 101 mmol/L (98-107); Glucose 135 mg/dL (74-106); Potassium 3.6 mmol/L (3.5-5.1); Sodium 136 mmol/L (136-145); Total Protein 7.8 g/dL (5.7-8.2)
[2025-01-17 06:51] LABS: Bilirubin, Total 0.3 mg/dL (0.2-1.0)
[2025-01-17] MEDS: AMITRIPTYLINE HCL 25 MG TAB PO SCH (08:59)
[2025-01-17] MEDS: LORazepam 0.5 MG TAB PO PRN (13:44)
--- NOTE | 2025-01-17 15:03 | DVH ---
EXAM: MRI BRAIN HEAD WO W CONTRAST HISTORY: r/o brain mass head pain TECHNIQUE: Multiplanar and multisequence MR imaging of the head was performed. This was done both before and after the administration of gadolinium contrast. COMPARISON: CT HEAD WITHOUT CONTRAST on DOS: 01/16/25 FINDINGS: The ventricles and subarachnoid spaces are normal in size and configuration. Minor patchy FLAIR hyperintensities in the supratentorial white matter consistent with nonspecific white matter disease. There is no midline shift or mass effect. There is no area of abnormal contrast enhancement. The vascular flow-voids are unremarkable. Diffusion weighted imaging is not indicative of acute or recent infarct. Hyperenhancement of the right paranasal sinuses and moderate to marked fluid level and opacification of the right maxillary and ethmoid sinuses and small fluid level in the right frontal sinus. IMPRESSION: 1. No acute or recent infarct or enhancing intracranial lesion. 2. Minor chronic microvascular ischemic change. 3. Right ostiomeatal unit complex pattern sinusitis.
--- NOTE | 2025-01-17 16:19 | DVHPNRES ---
Progress Note Date Seen: Jan 17, 2025 Resident Creating Document: MARYELLEN LEROY RESIDENT Medical Necessity Reason Pt with a Central, PICC or Fol: No Subjective Review of Systems MIKE FONSECA Devan Patient is a 65-year-old female with past medical history of diabetes, hypertension, hyperlipidemia, chronic migraine, who came with a chief complaint of nasal congestion, headaches, dizziness, fever at home recorded 101.0 and chills, shortness of breath with exertion. Patient states that she went to PCP 2 weeks ago for which she was tested negative for COVID, flu. And was given a Z-Torres, azithromycin outpatient for her symptoms but her symptoms still worsened which made her to come to the hospital. Patient also states that she was weeks of cough associated with green phlegm with sore throat for last 2 weeks. Patient states she had her last COVID and flu vaccine in October. 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 Patient also needs assistance to walk but is able to walk at home. Surgical history: , spinal fusion C3-T1, neck surgery Family history: Reviewed, noncontributory Social history: Patient denies smoking, alcohol, drug use Lives with family PCP: Dr. Gonzalez Constitutional: Denies weight loss, fever and chills. HEENT: Denies changes in vision and hearing. Respiratory: Denies shortness of breath and cough. Cardiovascular: Denies chest discomfort or palpitations GI: Mild abdominal distention, reports improvement on abdominal discomfort. : Denies dysuria and urinary frequency. Musculoskeletal: Denies myalgias and joint pain Skin: Denies rash and pruritus. Neurological: Denies dizziness, headache, vision or hearing problems 01/17/2025: Patient seen at bedside. Patient complains of mild headache, flu- like symptoms, nasal congestion. head CT showed Right maxillary, ethmoid, and right frontal sinus mucosal disease. Possible acute to subacute left external capsule infarct. MRI was ordered which came back negative. Augmentin was started. Objective vital signs Vital Sign Date Time Temp Pulse Resp B/P (MAP) Pulse Ox O2 Delivery O2 Flow Rate FiO2 01/17/25 13:00 98.0 115 16 134/100 (111) 95 98.0 01/17/25 08:00 Room Air* 0 21 Total Intake and Output 01/16/25 01/16/25 01/17/25 15:00 23:00 07:00 Intake Total 1000 ml 360 ml 250 ml Balance 1000 ml 360 ml 250 ml medications Current Medications Medications Dose Ordered Sig/Yaniv Route Start Time Stop Time Status Last Admin Dose Admin Ondansetron HCl 4 mg Q4HP PRN IV 01/16/25 15:15 Acetaminophen 650 mg Q6HP PRN PO 01/16/25 15:15 01/17/25 06:12 650 MG Diagnostic Test (Pha) 1 strip ACHS 01/16/25 17:00 01/17/25 10:41 1 STRIP Insulin Human Regular ACHS SC 01/16/25 17:00 01/17/25 10:42 3 UNITS Dextrose 50 ml UD PRN IV 01/16/25 15:15 Fluticasone Propionate 50 mcg Q12HR EACHNOSTRI 01/16/25 22:00 01/17/25 08:58 50 MCG Amitriptyline HCl 50 mg DAILY PO 01/17/25 10:00 01/17/25 08:59 50 MG Topiramate 100 mg TID PO 01/16/25 22:00 01/17/25 13:48 100 MG Methocarbamol 750 mg TID PO 01/16/25 22:00 01/17/25 13:45 750 MG Patient Own Medication 1 cap TID PO 01/16/25 22:00 Patient Own Medication 100 mg TID PO 01/16/25 22:00 Acetaminophen/ Hydrocodone Bitart 1 tab Q8HP PRN PO 01/16/25 23:45 01/17/25 09:00 1 TAB Amoxicillin/ Clavulanate Potassium 500 mg Q8HR PO 01/17/25 14:00 01/17/25 15:39 500 MG Lorazepam 0.5 mg Q12HP PRN PO 01/17/25 13:00 01/17/25 13:44 0.5 MG Examination General: Patient alert and oriented in person, place and time. Patient following commands. HEENT: Normocephalic, atraumatic, moist mucous membranes Respiratory/pulmonary: Normal breath sounds heard on auscultation Cardiovascular: Normal heart sounds S1 and S2 with no associated murmurs Abdomen: Abdomen nondistended, there is no pain to palpation in any of the abdominal quadrants, no palpable masses. Extremities: There is no peripheral edema present at the lower extremities. Peripheral Pulses: 3+ Radial (R). 3+ Radial (L). 3+ Dorsalis pedis (R). 3+ Dorsalis pedis(L) Skin: No rashes or pruritus, there is no sacral edema present at this time. Neurological: Intact cranial nerves with no focal neurologic deficits laboratory and microbiology Laboratory Tests 01/17/25 04:46 Test 01/17/25 04:46 Range/Units Serum Glucose 135 H 74-106 mg/dL Microbiology Date/Time Source Procedure Growth Status 01/16/25 12:54 Blood Blood Culture - Preliminary NO GROWTH AFTER 24 HOURS OF INCUBATION. Resulted Problem List/Assessment/Plan Problem List/Assessment/Plan Acute sinusitis - head CT showed No acute intracranial hemorrhage. Old bilateral basal ganglia lacunar infarcts. Possible acute to subacute left external capsule infarct..Mild generalized volume loss with chronic small vessel ischemic change. Right maxillary, ethmoid, and right frontal sinus mucosal disease. - MRI showed No acute or recent infarct or enhancing intracranial lesion. Minor chronic microvascular ischemic change. Right ostiomeatal unit complex pattern sinusitis. - COVID/influenza negative - chest x-ray showed no acute disease - Augmentin 500 mg p.o. 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 - monitor labs -IV fluids Diabetes mellitus -HbA1c 6.3 -ISS Transaminitis -monitor labs -liver ultrasound ordered Hypertension -resume home medications History of migraine -resume home medication History of spinal fusion - [place] Hyperlipidemia -atorvastatin Obesity BMI 28.6 -patient counseled on diet, exercise, lifestyle modifications for 18 minutes Goals of care addressed with the patient for more than 27 minutes: Full code status Case discussed with , patient and nurse Plan discussed with: Patient My Orders My Orders Orders - MARYELLEN LEROY Procedure Category Date Status Time Amoxicillin/Clavulanate PHA 01/17/25 In Process Tablet (Augmenti 14:00 Brain Head Wo W MRI 01/17/25 Resulted Contrast 12:44 Lorazepam Tablet PHA 01/17/25 In Process (Ativan Tablet) 13:00 Communication Order ORDERS 01/17/25 Transmitted 12:49 Date of Service: Jan 17, 2025 Billing Provider: THERON SANTIAGO MD Common Visit Codes: [id number] INP/OBS CARE(HIGH) MARYELLEN LEROY RESIDENT Jan 17, 2025 16:19 THERON SANTIAGO MD Jan 18, 2025 21:16
[2025-01-17] MEDS: ATORVASTATIN 20 MG TAB PO SCH (21:08)
--- NOTE | 2025-01-17 21:42 | DVH ---
INDICATION: transaminitis TECHNIQUE: Multiple real-time sonographic images were obtained of the right upper quadrant. COMPARISON: None FINDINGS: Liver: Mildly enlarged measuring 15.7 cm with mild diffuse fatty infiltration, coarsening of the hepatic echotexture, and Some surface nodularity. No discrete lesion is seen. Gallbladder: Resected. CBD: 0.4 cm, within normal limits Pancreas: Not well seen due to overlying bowel gas. Right kidney: 11.5 cm. No stones or hydronephrosis IMPRESSION: Mild hepatic steatosis with some suspected surface nodularity Likely suggesting cirrhosis.
[2025-01-18 00:56] VITALS: BP 186/113; PULSE 127; RESP 18; TEMP 98; O2SAT 96
[2025-01-18 05:00] VITALS: BP 147/92; PULSE 125; RESP 18; TEMP 98.8; O2SAT 97
[2025-01-18 05:38] LABS: Hematocrit 37.4 % (36.0-46.0); Hemoglobin 12.6 g/dL (12.2-16.2); Mean Corpuscular Hemoglobin 30.3 pg (28.0-32.0); Mean Corpuscular Volume 90.3 fL (80.0-100.0); Nucleated Red Blood Cells % 0.1 %
[2025-01-18 05:53] LABS: Chloride 100 mmol/L (98-107); Potassium 3.8 mmol/L (3.5-5.1); Sodium 136 mmol/L (136-145)
[2025-01-18 05:55] LABS: Alanine Aminotransferase 91 U/L (7-40)
[2025-01-18 05:57] LABS: Anion Gap 14 (5-15); Carbon Dioxide 22 mmol/L (20-31)
[2025-01-18 05:59] LABS: Calcium 10.4 mg/dL (8.7-10.4)
[2025-01-18 06:02] LABS: BUN/Creatinine Ratio 17.1 (10.0-20.0); Blood Urea Nitrogen 14 mg/dL (9-23); Glucose 142 mg/dL (74-106)
[2025-01-18 06:03] LABS: Total Protein 8.1 g/dL (5.7-8.2)
[2025-01-18 06:07] LABS: Albumin 5.0 g/dL (3.2-4.8); Bilirubin, Total 0.3 mg/dL (0.2-1.0)
[2025-01-18 06:13] LABS: Alkaline Phosphatase 123 U/L (46-116)
[2025-01-18 09:00] VITALS: BP 136/88; PULSE 116; RESP 19; TEMP 98.5; O2SAT 96
[2025-01-18] MEDS: SODIUM CHLORIDE 0.9% 500 ML IV ONE (11:24)
[2025-01-18 13:00] VITALS: BP 134/90; PULSE 123; RESP 19; TEMP 99.4; O2SAT 96
--- NOTE | 2025-01-18 16:29 | DVHPNRES ---
Progress Note Date Seen: Jan 18, 2025 Resident Creating Document: MARYELLEN LEROY RESIDENT Medical Necessity Reason Pt with a Central, PICC or Fol: No Subjective Review of Systems MIKE FONSECA Devan Patient is a 65-year-old female with past medical history of diabetes, hypertension, hyperlipidemia, chronic migraine, who came with a chief complaint of nasal congestion, headaches, dizziness, fever at home recorded 101.0 and chills, shortness of breath with exertion. Patient states that she went to PCP 2 weeks ago for which she was tested negative for COVID, flu. And was given a Z-Torres, azithromycin outpatient for her symptoms but her symptoms still worsened which made her to come to the hospital. Patient also states that she was weeks of cough associated with green phlegm with sore throat for last 2 weeks. Patient states she had her last COVID and flu vaccine in October. 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 Patient also needs assistance to walk but is able to walk at home. Surgical history: , spinal fusion C3-T1, neck surgery Family history: Reviewed, noncontributory Social history: Patient denies smoking, alcohol, drug use Lives with family PCP: Dr. Gonzalez Constitutional: Denies weight loss, fever and chills. HEENT: Denies changes in vision and hearing. Respiratory: Denies shortness of breath and cough. Cardiovascular: Denies chest discomfort or palpitations GI: Mild abdominal distention, reports improvement on abdominal discomfort. : Denies dysuria and urinary frequency. Musculoskeletal: Denies myalgias and joint pain Skin: Denies rash and pruritus. Neurological: Denies dizziness, headache, vision or hearing problems 01/17/2025: Patient seen at bedside. Patient complains of mild headache, flu- like symptoms, nasal congestion. head CT showed Right maxillary, ethmoid, and right frontal sinus mucosal disease. Possible acute to subacute left external capsule infarct. MRI was ordered which came back negative. Augmentin was started. 01/18/2025: Patient seen at bedside. Patient today feels much better, is on room air, MRI showed No acute or recent infarct or enhancing intracranial lesion.Minor chronic microvascular ischemic change. Right ostiomeatal unit complex pattern sinusitis. Possible discharge tomorrow after checking CBC. Objective vital signs Vital Sign Date Time Temp Pulse Resp B/P (MAP) Pulse Ox O2 Delivery O2 Flow Rate FiO2 01/18/25 13:00 99.4 123 19 134/90 (105) 96 99.4 01/18/25 07:44 Room Air* 0 21 Total Intake and Output 01/17/25 01/17/25 01/18/25 15:00 23:00 07:00 Intake Total 760 ml 200 ml Balance 760 ml 200 ml medications Current Medications Medications Dose Ordered Sig/Yaniv Route Start Time Stop Time Status Last Admin Dose Admin Ondansetron HCl 4 mg Q4HP PRN IV 01/16/25 15:15 Acetaminophen 650 mg Q6HP PRN PO 01/16/25 15:15 01/17/25 06:12 650 MG Diagnostic Test (Pha) 1 strip ACHS 01/16/25 17:00 01/18/25 11:19 1 STRIP Insulin Human Regular ACHS SC 01/16/25 17:00 01/18/25 11:24 3 UNITS Dextrose 50 ml UD PRN IV 01/16/25 15:15 Fluticasone Propionate 50 mcg Q12HR EACHNOSTRI 01/16/25 22:00 01/18/25 09:08 50 MCG Amitriptyline HCl 50 mg DAILY PO 01/17/25 10:00 01/18/25 09:09 50 MG Topiramate 100 mg TID PO 01/16/25 22:00 01/18/25 13:40 100 MG Methocarbamol 750 mg TID PO 01/16/25 22:00 01/18/25 13:41 750 MG Patient Own Medication 1 cap TID PO 01/16/25 22:00 Patient Own Medication 100 mg TID PO 01/16/25 22:00 Acetaminophen/ Hydrocodone Bitart 1 tab Q8HP PRN PO 01/16/25 23:45 01/18/25 09:09 1 TAB Amoxicillin/ Clavulanate Potassium 500 mg Q8HR PO 01/17/25 14:00 01/18/25 13:41 500 MG Lorazepam 0.5 mg Q12HP PRN PO 01/17/25 13:00 01/17/25 13:44 0.5 MG Atorvastatin Calcium 40 mg HS PO 01/17/25 22:00 01/17/25 21:08 40 MG Examination General: Patient alert and oriented in person, place and time. Patient following commands. HEENT: Normocephalic, atraumatic, moist mucous membranes Respiratory/pulmonary: Clear lungs bilaterally, vesicular murmurs present in almost all lung remy, no associated crackles or wheezes. Cardiovascular: Normal heart sounds S1 and S2 with no associated murmurs Abdomen: Abdomen nondistended, there is no pain to palpation in any of the abdominal quadrants, no palpable masses. Extremities: There is no peripheral edema present at the lower extremities. Peripheral Pulses: 3+ Radial (R). 3+ Radial (L). 3+ Dorsalis pedis (R). 3+ Dorsalis pedis(L) Skin: No rashes or pruritus, there is no sacral edema present at this time. Neurological: Intact cranial nerves with no focal neurologic deficits laboratory and microbiology Laboratory Tests 01/18/25 04:40 Test 01/18/25 04:40 Range/Units Serum Glucose 142 H 74-106 mg/dL Microbiology Date/Time Source Procedure Growth Status 01/16/25 12:54 Blood Blood Culture - Preliminary NO GROWTH AFTER 48 HOURS OF INCUBATION. Resulted Problem List/Assessment/Plan Problem List/Assessment/Plan Acute sinusitis - head CT showed No acute intracranial hemorrhage. Old bilateral basal ganglia lacunar infarcts. Possible acute to subacute left external capsule infarct..Mild generalized volume loss with chronic small vessel ischemic change. Right maxillary, ethmoid, and right frontal sinus mucosal disease. - MRI showed No acute or recent infarct or enhancing intracranial lesion. Minor chronic microvascular ischemic change. Right ostiomeatal unit complex pattern sinusitis. - COVID/influenza negative - chest x-ray showed no acute disease - Augmentin 500 mg p.o. 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 - monitor labs -IV fluids Diabetes mellitus -HbA1c 6.3 -ISS Transaminitis -monitor labs -liver ultrasound ordered Hypertension -resume home medications History of migraine -resume home medication History of spinal fusion - [place] Hyperlipidemia -atorvastatin Obesity BMI 28.6 -patient counseled on diet, exercise, lifestyle modifications for 18 minutes Goals of care addressed with the patient for more than 27 minutes: Full code status Case discussed with , patient and nurse Plan discussed with: Patient My Orders My Orders Orders - MARYELLEN LEROY RESIDENT Procedure Category Date Status Time LIVER US 01/17/25 Resulted 16:34 Atorvastatin (Lipitor) PHA 01/17/25 In Process 22:00 Date of Service: Jan 18, 2025 Billing Provider: THERON SANTIAGO MD Common Visit Codes: [id number] INP/OBS CARE(HIGH) MARYELLEN LEROY RESIDENT Jan 18, 2025 16:29 THERON SANTIAGO MD Jan 18, 2025 21:17
[2025-01-18 17:00] VITALS: BP 145/87; PULSE 116; RESP 19; TEMP 99.1; O2SAT 98
[2025-01-18 21:00] VITALS: BP 117/90; PULSE 118; RESP 19; TEMP 98.5; O2SAT 97
[2025-01-18] MEDS: GADOTERATE MEG 10 MMOL/20ml INJ (0.5MMOL/ml) IV ONE (21:21)
[2025-01-19 01:28] VITALS: BP 94/60
[2025-01-19] MEDS ORDERED: METO-289 PO (01:44)
[2025-01-19] MEDS ORDERED: ASPI-543 PO (01:44)
[2025-01-19 05:00] VITALS: BP 93/60; PULSE 110; RESP 19; TEMP 98.8; O2SAT 95
[2025-01-19 06:45] VITALS: BP 127/106; PULSE 107
[2025-01-19] MEDS ORDERED: RIME75TA PO (07:02)
[2025-01-19 07:03] LABS: Hemoglobin 12.0 g/dL (12.2-16.2)
[2025-01-19 07:05] LABS: Hematocrit 35.9 % (36.0-46.0); Mean Corpuscular Hemoglobin 30.0 pg (28.0-32.0); Mean Corpuscular Volume 89.7 fL (80.0-100.0); Nucleated Red Blood Cells % 0.1 %
[2025-01-19 07:12] LABS: Chloride 101 mmol/L (98-107); Potassium 3.8 mmol/L (3.5-5.1); Sodium 137 mmol/L (136-145)
[2025-01-19 07:13] LABS: Anion Gap 11 (5-15); Carbon Dioxide 25 mmol/L (20-31)
[2025-01-19 07:14] LABS: Calcium 10.1 mg/dL (8.7-10.4)
[2025-01-19 07:19] LABS: BUN/Creatinine Ratio 15.3 (10.0-20.0); Blood Urea Nitrogen 15 mg/dL (9-23)
[2025-01-19 07:20] LABS: Glucose 148 mg/dL (74-106)
[2025-01-19 08:00] VITALS: PULSE 115; RESP 19
[2025-01-19 08:50] VITALS: BP 115/87; PULSE 115; RESP 19; TEMP 97.4; O2SAT 97
[2025-01-19 13:00] VITALS: BP 119/78; PULSE 106; RESP 19; TEMP 98; O2SAT 98
[2025-01-19] MEDS ORDERED: AUG875T PO (13:45)
--- NOTE | 2025-01-19 15:29 | DVHDSRES ---
Discharge Summary Date of Admission Resident Creating Document: MARYELLEN LEROY Jan 16, 2025 at 16:41 Date of Discharge: Jan 19, 2025 Admitting Diagnosis Acute sinusitis Labs/Diagnostic Data: Laboratory Results Test 01/19/25 06:49 01/19/25 06:45 01/18/25 04:40 01/16/25 17:17 White Blood Count 9.3 10^3/uL (4.4-10.8) Red Blood Count 4.00 10^6/uL (4.0-5.20) Hemoglobin 12.0 g/dL (12.2-16.2) Hematocrit 35.9 % (36.0-46.0) Mean Corpuscular Volume 89.7 fL (80.0-100.0) Mean Corpuscular Hemoglobin 30.0 pg (28.0-32.0) Mean Corpuscular Hemoglobin Concent 33.4 g/dL (32.0-36.0) Red Cell Distribution Width 14.7 % (11.8-14.3) Platelet Count 583 10^3/uL (140-450) Mean Platelet Volume 6.8 fL (6.9-10.8) Neutrophils (%) (Auto) 45.5 % (37.0-80.0) Lymphocytes (%) (Auto) 35.8 % (10.0-50.0) Monocytes (%) (Auto) 10.2 % (0.0-12.0) Eosinophils (%) (Auto) 7.8 % (0.0-7.0) Basophils (%) (Auto) 0.7 % (0.0-2.0) Neutrophils # (Auto) 4.2 10 ^3/uL (1.6-8.6) Lymphocytes # (Auto) 3.3 10 ^3/uL (0.4-5.4) Monocytes # (Auto) 0.9 10 ^3/uL (0-1.3) Eosinophils # (Auto) 0.7 10 ^3/uL (0-0.8) Basophils # (Auto) 0.1 10 ^3/uL (0-0.2) Nucleated Red Blood Cells 0.1 % Sodium Level 137 mmol/L (136-145) Potassium Level 3.8 mmol/L (3.5-5.1) Chloride Level 101 mmol/L (98-107) Carbon Dioxide Level 25 mmol/L (20-31) Anion Gap 11 (5-15) Blood Urea Nitrogen 15 mg/dL (9-23) Creatinine 0.98 mg/dL (0.550-1.02) Glomerular Filtration Rate Calc 64 mL/min (>90) BUN/Creatinine Ratio 15.3 (10.0-20.0) Serum Glucose 148 mg/dL (74-106) Calcium Level 10.1 mg/dL (8.7-10.4) POC Glucose 139 mg/dl (70-106) Total Bilirubin 0.3 mg/dL (0.2-1.0) Aspartate Amino Transferase (AST) 27 U/L (13-40) Alanine Aminotransferase (ALT) 91 U/L (7-40) Alkaline Phosphatase 123 U/L (46-116) Total Protein 8.1 g/dL (5.7-8.2) Albumin 5.0 g/dL (3.2-4.8) Urine Color Yellow (Yellow) Urine Clarity Clear (Clear) Urine pH 5.5 (5.0-9.0) Urine Specific [place] 1.017 (1.001-1.035) Urine Protein Trace (Negative) Urine Ketones Negative (Negative) Urine Blood Negative /uL (Negative) Urine Nitrite Negative (Negative) Urine Bilirubin Negative (Negative) Urine Urobilinogen Normal mg/dL (Negative) Urine Leukocyte Esterase Trace /uL (Negative) Urine RBC 2 /hpf (0 - 4) Urine Microscopic WBC 7 /HPF (0-5) Urine Squamous Epithelial Cells Few /hpf (<5) Urine Bacteria None seen /hpf (None Seen) Urine Hyaline Casts Few /lpf (0 - 2) Urine Mucus Few (None Seen) Urine Glucose Normal mg/dL (Normal) Urine Opiates Screen Neg (NEGATIVE) Urine Fentanyl Screen Neg (NEGATIVE) Urine Barbiturates Screen Neg (NEGATIVE) Urine Phencyclidine Screen Neg (NEGATIVE) Urine Amphetamines Screen Neg (NEGATIVE) Urine Benzodiazepines Screen Neg (NEGATIVE) Urine Cocaine Screen Neg (NEGATIVE) Urine Cannabinoids Screen Neg (NEGATIVE) Test 01/16/25 16:58 01/16/25 14:27 01/16/25 12:54 Influenza Type A Antigen Negative (Negative) Influenza Type B Antigen Negative (Negative) SARS-CoV-2 Antigen (Rapid) Negative (NEGATIVE) Lactic Acid Level 1.1 mmol/L (0.4-2.0) Hemoglobin A1c 6.3 % A1C (<5.7) Troponin I High Sensitivity < 3 ng/L (</=34) Other Laboratory Tests 01/19/25 06:49 Brief Hx & Hospital Course: MIKE FONSECA Patient is a 65-year-old female with past medical history of diabetes, hypertension, hyperlipidemia, chronic migraine, who came with a chief complaint of nasal congestion, headaches, dizziness, fever at home recorded 101.0 and chills, shortness of breath with exertion. Patient states that she went to PCP 2 weeks ago for which she was tested negative for COVID, flu. And was given a Z-Torres, azithromycin outpatient for her symptoms but her symptoms still worsened which made her to come to the hospital. Patient also states that she was weeks of cough associated with green phlegm with sore throat for last 2 weeks. Patient states she had her last COVID and flu vaccine in October. 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 Patient also needs assistance to walk but is able to walk at home. Surgical history: , spinal fusion C3-T1, neck surgery Family history: Reviewed, noncontributory Social history: Patient denies smoking, alcohol, drug use Lives with family PCP: Dr. Gonzalez Brief hospital course: Patient came with complains of mild headache, flu-like symptoms, nasal congestion. head CT showed Right maxillary, ethmoid, and right frontal sinus mucosal disease. Possible acute to subacute left external capsule infarct. Augmentin was started, Flonase was given. Chest x-ray showed no acute disease, COVID and influenza tests were negative. MRI showed No acute or recent infarct or enhancing intracranial lesion.Minor chronic microvascular ischemic change. Right ostiomeatal unit complex pattern sinusitis. Patient had STEPHANIE on CKD likely due to be [place] for which IV fluids was given and labs were monitored, for diabetes insulin sliding scale was given. Transaminitis, liver ultrasound was ordered, showed Mild hepatic steatosis with some suspected surface nodularity Likely suggesting cirrhosis. patient has history of hypotension for which home medications were resumed, history of migraine, spinal fusion for which home medications were resumed. Patient had hyperlipidemia for which atorvastatin was given. Patient is obese with a BMI of 28.6 for which patient was counseled on diet, exercise, lifestyle modifications for greater than 18 minutes. patient is stable for discharge, patient understands her discharge plan and has agreed. Patient is to follow-up with discharge Clinic in 1 week. Patient is to take: Augmentin 875mg X 7 days General: Patient alert and oriented in person, place and time. Patient following commands. HEENT: Normocephalic, atraumatic, moist mucous membranes Respiratory/pulmonary: Clear lungs bilaterally, vesicular murmurs present in almost all lung remy, no associated crackles or wheezes. Cardiovascular: Normal heart sounds S1 and S2 with no associated murmurs Abdomen: Abdomen nondistended, there is no pain to palpation in any of the abdominal quadrants, no palpable masses. Extremities: There is no peripheral edema present at the lower extremities. Peripheral Pulses: 3+ Radial (R). 3+ Radial (L). 3+ Dorsalis pedis (R). 3+ Dorsalis pedis(L) Skin: No rashes or pruritus, there is no sacral edema present at this time. Neurological: Intact cranial nerves with no focal neurologic deficits Operations or Procedures ORDERING PHYSICIAN: CHRISTIE RODRIGUEZ MD PROCEDURE(s): CXRP - CHEST PORTABLE REASON: sob ORDER NUMBER(s): [id number], ACCESSION NUMBER(s): [id number] EXAM: XY CHEST PORTABLE Indication: sob Technique: Single frontal view of the chest was obtained Comparison: None FINDINGS: Lines and Tubes: None Lungs: Linear atelectasis of the left lower lung. Pleura: No effusion. No pneumothorax. Cardiomediastinal contours: Unremarkable Bones: No acute osseous abnormality. IMPRESSION: No acute cardiopulmonary disease. ATED BY: TED CLEMENS MD DICTATED DATE/TIME: 01/16/25 1304 SIGNED BY: TED CLEMENS MD SIGNED DATE/TIME: 01/16/25 1304 ORDERING PHYSICIAN: CHRISTIE RODRIGUEZ MD PROCEDURE(s): HWOCT - HEAD WITHOUT CONTRAST REASON: headache ORDER NUMBER(s): [id number], ACCESSION NUMBER(s): [id number] COMPUTERIZED TOMOGRAPHY OF THE HEAD WITHOUT CONTRAST REASON FOR STUDY: headache COMPARISON: CT HEAD WITHOUT CONTRAST on DOS: 01/15/24 TECHNIQUE: Helical tomographic scans were obtained through the brain. 2-D coronal and sagittal reformatted images are provided. Radiation optimization: All CT scans at this facility use at least one of these dose optimization techniques: Automated exposure control mA and/or kV adjustment per patient size (includes targeted exams where dose is matched to clinical indication) or iterative reconstruction. RADIATION DOSE: CTDI: 55 mGy DLP: 879 mGy-cm FINDINGS: No suspicious intracranial hyperdensity to suggest acute blood. There are old lacunar infarcts in bilateral basal ganglia. There is age-indeterminate hypodensity in bilateral external capsules. There may be some volume gain in the left external capsule making acute to subacute infarct more likely. There is no midline shift. There is mild generalized volume loss with compensatory enlargement of the CSF spaces. There is no hydrocephalus. The suprasellar cistern is intact. There are scattered periventricular and deep white matter hypodensities that are most consistent with chronic microangiopathic changes. The calvarium is intact. There is near-complete opacification of the right maxillary sinus. There is moderate mucosal disease in the ethmoid air cells and right frontal sinus. The visualized mastoid air cells are grossly clear. IMPRESSION: No acute intracranial hemorrhage. Old bilateral basal ganglia lacunar infarcts. Possible acute to subacute left external capsule infarct. Further evaluation with brain MRI is recommended without and with contrast to rule out an underlying mass lesion. Mild generalized volume loss with chronic small vessel ischemic change. Right maxillary, ethmoid, and right frontal sinus mucosal disease. Correlate clinically for acute sinusitis. ATED BY: ISHMAEL DURHAM MD DICTATED DATE/TIME: 01/16/25 1554 SIGNED BY: ISHMAEL DURHAM MD SIGNED DATE/TIME: 01/16/25 1554 ORDERING PHYSICIAN: MARYELLEN LEROY RESIDENT PROCEDURE(s): MB - BRAIN HEAD WO W CONTRAST REASON: ORDER NUMBER(s): [id number], ACCESSION NUMBER(s): [id number] EXAM: MRI BRAIN HEAD WO W CONTRAST HISTORY: r/o brain mass head pain TECHNIQUE: Multiplanar and multisequence MR imaging of the head was performed. This was done both before and after the administration of gadolinium contrast. COMPARISON: CT HEAD WITHOUT CONTRAST on DOS: 01/16/25 FINDINGS: The ventricles and subarachnoid spaces are normal in size and configuration. Minor patchy FLAIR hyperintensities in the supratentorial white matter consistent with nonspecific white matter disease. There is no midline shift or mass effect. There is no area of abnormal contrast enhancement. The vascular flow-voids are unremarkable. Diffusion weighted imaging is not indicative of acute or recent infarct. Hyperenhancement of the right paranasal sinuses and moderate to marked fluid level and opacification of the right maxillary and ethmoid sinuses and small fluid level in the right frontal sinus. IMPRESSION: 1. No acute or recent infarct or enhancing intracranial lesion. 2. Minor chronic microvascular ischemic change. 3. Right ostiomeatal unit complex pattern sinusitis. ATED BY: SURINDER COX MD DICTATED DATE/TIME: 01/17/251500 SIGNED BY: SURINDER COX MD SIGNED DATE/TIME: 01/17/251500 ORDERING PHYSICIAN: MARYELLEN LEROY PROCEDURE(s): LIVUS - LIVER REASON: transaminitis ORDER NUMBER(s): [id number], ACCESSION NUMBER(s): [id number] INDICATION: transaminitis TECHNIQUE: Multiple real-time sonographic images were obtained of the right upper quadrant. COMPARISON: None FINDINGS: Liver: Mildly enlarged measuring 15.7 cm with mild diffuse fatty infiltration, coarsening of the hepatic echotexture, and Some surface nodularity. No discrete lesion is seen. Gallbladder: Resected. CBD: 0.4 cm, within normal limits Pancreas: Not well seen due to overlying bowel gas. Right kidney: 11.5 cm. No stones or hydronephrosis IMPRESSION: Mild hepatic steatosis with some suspected surface nodularity Likely suggesting cirrhosis. 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 Diabetes mellitus Transaminitis Hypertension History of migraine History of spinal fusion Hyperlipidemia Obesity BMI 28.6 Discharge Disposition: Home Discharge Instruct/Medications Diet: Cardiac 2g Na,low cholest Activity: No Restrictions, As Tolerated Follow Up/Referral: Follow-up with discharge Clinic Follow-up with PCP Medications: As per EMR Scheduled Amitriptyline Hcl (Amitriptyline Hcl), 50 MG PO DAILY, (Reported) Amlodipine Besylate (Norvasc Tablet), 10 MG PO DAILY Amoxicillin & Pot Clavulanate (Augmentin Tablet), 875 MG PO BID Aspirin (Aspir-Low), 81 MG PO DAILY, (Reported) Dicyclomine Hcl (Dicyclomine Hcl), 10 MG PO BID, (Reported) Hydralazine HCl (Hydralazine HCl), 50 MG PO TID Methocarbamol (Methocarbamol), 750 MG PO TID, (Reported) Metoprolol Succinate (Metoprolol Succinate Er), 100 MG PO DAILY, (Reported) Rosuvastatin Calcium (Crestor), 1 TAB PO DAILY, (Reported) Tizanidine Hydrochloride (Zanaflex), 1 CAP PO TID, (Reported) Topiramate (Topiramate), 100 MG PO TID, (Reported) Valsartan (Valsartan), 320 MG PO DAILY Zonisamide (Zonisamide), 100 MG PO TID, (Reported) Scheduled PRN Rimegepant Sulfate (Nurtec), 75 MG PO for PRN Daily, (Reported) Miscellaneous Medications Glipizide (Glipizide), 5 MG PO, (Reported) Discharge Statement: "Patient was advised to return to the ER or call 911 if any headaches, dizziness, shortness of breath, chest pain, abdominal pain, bleeding, fevers, or worsening of medical condition. Patient was counseled about treatment plan, medications, possible side effects, patientverbalized understanding. All questions were answered to the best of my ability. This discharge took greater then 30 minutes in planning, reviewing documentation, counseling the patient, and discussing with other team members." ASSESSMENT ASSESSMENT Assessment Date of Service: Jan 19, 2025 Billing Provider: THERON SANTIAGO MD Common Visit Codes: 29901-ZKW/OBS DISCH DAY >30min MARYELLEN LEROY Jan 19, 2025 15:29 THERON SANTIAGO MD Jan 19, 2025 22:46
== END 2025-01-19 15:15 | disposition home or self-care (01) | DRG 152 ==
LOC: EDBD 12:24 → ER 12:24 → OVERFLOW 16:41 → WEST WING 18:26 → TELE-WESTW 01-18 23:05
PROC: 05HB33Z Insertion of Infusion Device into Right Basilic Vein, Percutaneous Approach (ICD-10-PCS; principal; 2025-01-16)
PROC: B54MZZA Ultrasonography of Right Upper Extremity Veins, Guidance (ICD-10-PCS; 2025-01-16)
DX: J01.90 Acute sinusitis, unspecified (principal); N17.0 Acute kidney failure with tubular necrosis; N18.9 Chronic kidney disease, unspecified; E66.9 Obesity, unspecified; E11.22 Type 2 diabetes mellitus with diabetic chronic kidney disease; I12.9 Hypertensive chronic kidney disease with stage 1 through stage 4 chronic kidney disease, or unspecified chronic kidney disease; Z20.822 Contact with and (suspected) exposure to COVID-19; Z68.28 Body mass index [BMI] 28.0-28.9, adult; R74.01 Elevation of levels of liver transaminase levels; E78.5 Hyperlipidemia, unspecified; G43.909 Migraine, unspecified, not intractable, without status migrainosus; Z98.1 Arthrodesis status; Z98.891 History of uterine scar from previous surgery; Z82.49 Family history of ischemic heart disease and other diseases of the circulatory system; Z79.899 Other long term (current) drug therapy
CPT/HCPCS: 36415; 70450; 70553; 71045; 76705; 80048; 80053; 80307; 81001; 82962; 83036; 83605; 84484; 85025; 87040; 87426; 87804; 96360; 96361; 97116; 97163; G0378; J1815

== ENCOUNTER 2025-02-16 14:47 | Inpatient (IN) | payer MEDICAID ==
[~2025-02-16] VITALS: Ht 175.3 cm; Wt 89.0 kg
[~2025-02-16 14:47] MED LIST changes: +ASPI-543 PO; +AUG875T PO; -CARV-216 PO; +GLIP5TAB21 PO; +METO-289 PO; +RIME75TA PO; +ROSU10TA16 PO
--- NOTE | 2025-02-16 15:08 | ED.PDOC ---
Eye-HPI HPI Comments 65-year-old female who presents to the ED via EMS for chief complaint of a generalized headache associated with shortness of breath and congestion that has been ongoing. Patient reports that she was diagnosed with sinusitis about 2 months ago and is on her 2nd round of doxycycline which is the 7th day taking the antibiotic. Patient reports that she went to see ENT days ago in which she was told that she needed a procedure however states that she was advised to go to the ER if symptoms persisted or became worse. Since states that congestion and headache are not allowing her to sleep. Patient has a medical history of diabetes hypertension and [place] Time Seen by MD: 14:48 Reviewed Notes: Nurses Notes, Tray Room Worker Notes, Medications, Allergies Allergies: Coded Allergies: NO KNOWN ALLERGIES (Unverified , 01/14/24) Home Meds Active Scripts Amoxicillin & Pot Clavulanate (AUGMENTIN TABLET) 875 Mg Tb, 875 MG PO BID for 7 Days, #14 TAB Prov:SAMSON GARSIA RESIDENT 01/19/25 Valsartan (Valsartan) 80 Mg Tab, 320 MG PO DAILY for 30 Days, #120 TAB Prov:ALEAH HARRELL RESIDENT 01/16/24 Hydralazine HCl (Hydralazine HCl) 25 Mg Tab, 50 MG PO TID for 30 Days, #180 TAB Prov:ALEAH HARRELL RESIDENT 01/16/24 Amlodipine Besylate (NORVASC TABLET) 5 Mg Tb, 10 MG PO DAILY for 30 Days, #60 TAB Prov:ALEAH HARRELL RESIDENT 01/16/24 Reported Medications Rimegepant Sulfate (Nurtec) 75 Mg Tab, 75 MG PO PRN for PRN Daily, TAB 01/19/25 Aspirin (Aspir-Low) 81 Mg Tab, 81 MG PO DAILY for 30 Days, MG 01/19/25 Metoprolol Succinate (Metoprolol Succinate Er) 50 Mg Tab, 100 MG PO DAILY for 30 Days, MG 01/19/25 Rosuvastatin Calcium (Crestor) 10 Mg Tab, 1 TAB PO DAILY, #30 TAB 5 Refills 01/16/25 Glipizide (Glipizide) 5 Mg Tab, 5 MG PO for 30 Days, MG 01/16/25 Zonisamide (Zonisamide) 100 Mg Cap, 100 MG PO TID, CAP 01/15/24 Topiramate (Topiramate) 100 Mg Tab, 100 MG PO TID for 30 Days, MG 01/15/24 Tizanidine Hydrochloride (Zanaflex) 4 Mg Cap, 1 CAP PO TID, #90 CAP 01/15/24 Methocarbamol (Methocarbamol) 750 Mg Tab, 750 MG PO TID, TAB 01/15/24 Amitriptyline Hcl (Amitriptyline Hcl) 25 Mg Tab, 50 MG PO DAILY for 30 Days, MG 01/15/24 Dicyclomine Hcl (Dicyclomine Hcl) 10 Mg Cap, 10 MG PO BID for 30 Days, MG 01/15/24 Information Source: Patient, Emergency Med Personnel Mode of Arrival: EMS Timing: Months (2) Duration: Since onset Past Medical History PAST MEDICAL HISTORY: DM, HTN Surgical History: PUPPY TRAINER History: Denies all PUPPY TRAINER Hx Family History Family History: Unknown Social History Smoker: Non-Smoker Alcohol: Denies ETOH Use Drugs: Denies Drug Use Lives In: Home Constitutional: denies: chills, diaphoresis, fatigue, fever, malaise, sweats, weakness, others EENTM: reports: nose congestion; denies: blurred vision, double vision, ear bleeding, ear discharge, ear drainage, ear pain, ear ringing, eye pain, eye redness, hearing loss, mouth pain, mouth swelling, nasal discharge, nose bleeding, nose pain, photophobia, tearing, throat pain, throat swelling, voice changes, others Respiratory: reports: SOB at rest, shortness of breath; denies: cough, hemoptysis, orthopnea, SOB with excertion, stridor, wheezing, others Cardiovascular: denies: chest pain, dizzy spells, diaphoresis, Dyspnea on exertion, edema, irregular heart beat, left arm pain, lightheadedness, palpitations, PND, syncope, others Gastrointestinal: denies: abdomen distended, abdominal pain, blood streaked bowels, constipated, diarrhea, dysphagia, difficulty swallowing, hematemesis, melena, nausea, poor appetite, poor fluid intake, rectal bleeding, rectal pain, vomiting, others Genitourinary: denies: abnormal vagina bleeding, burning, dyspareunia, dysuria, flank pain, frequency, hematuria, incontinence, pain, , vagina discharge, urgency, others Neurological: reports: headache; denies: dizziness, fainting, left sided numbness, left sided weakness, numbness, paresthesia, pre-existing deficit, right sided numbness, right sided weakness, seizure, speech problems, tingling, tremors, weakness, others Musculoskeletal: denies: back pain, gout, joint pain, joint swelling, muscle pain, muscle stiffness, neck pain, others Integumetry: denies: bruises, change in color, change in hair/nails, dryness, laceration, lesions, lumps, rash, wounds, others Allergic/Immunocompromised: denies: Difficulty Healing, Frequent Infections, Hives, Itching, others Hematologic/Lymphatic: denies: anemia, blood clots, easy bleeding, easy b ruising, swollen glands, others Endocrine: denies: excessive hunger, excessive sweating, excessive thirst, excessive urination, flushing, intolerance to cold, intolerance to heat, unexplained weight gain, unexplained weight loss, others Psychiatric: denies: anxiety, bipolar disorder, depression, hopeless, panic disorder, schizophrenia, sleepless, suicidal, others All Other Systems: Reviewed and Negative Physical Exam General Appearance: Moderate Distress HEENT: Normal ENT Inspection, Pharynx Normal, TMs Normal Neck: Full Range of Motion, Non-Tender, Normal, Normal Inspection Respiratory: Chest Non-Tender, Lungs Clear, No Accessory Muscle Use, No Respiratory Distress, Normal Breath Sounds Cardiovascular: No Edema, No JVD, No Murmur, No Gallop, Normal Peripheral Pulses, Regular Rate/Rhythm Breast Exam: Deferred Gastrointestinal: No Organomegaly, Non Tender, No Pulsatile Mass, Normal Bowel Sounds, Soft Genitalia: Deferred Pelvic: Deferred Rectal: Deferred Extremities: No calf tenderness, Normal capillary refill, Normal inspection, Normal range of motion, Non-tender, No pedal edema Musculoskeletal : Apperance: Normal Neurologic: Alert, program support clerk II-XII nml as Tested, No Motor Deficits, Normal Affect, Normal Mood, No Sensory Deficits Cerebellar Function: NOT DONE Reflexes: NOT DONE Skin: Dry, Normal Color, Warm Peripheral Pulses: 3+ Radial (R), 3+ Radial (L) Lymphatic: No Adenopathy Was a procedure done? Was a procedure done?: No EENT DIFF Eye: N/A X-Ray, Labs, Meds, VS Vital Signs Date Time Temp Pulse Resp B/P (MAP) Pulse Ox O2 Delivery O2 Flow Rate FiO2 02/16/25 16:22 109 15 100 Room Air 02/16/25 16:20 98.8 109 15 126/88 (101) 100 98.8 02/16/25 16:13 98.1 100 18 135/91 97 98.1 Lab Test 02/16/25 16:15 02/16/25 16:05 02/16/25 15:00 Range/Units POC Glucose 103 70-106 mg/dl Urine Color Light-yellow Yellow Urine Clarity Clear Clear Urine pH 6.0 5.0-9.0 Urine Specific [place] 1.023 1.001-1.035 Urine Protein Negative Negative Urine Ketones Negative Negative Urine Blood Negative Negative /uL Urine Nitrite Negative Negative Urine Bilirubin Negative Negative Urine Urobilinogen Normal Negative mg/dL Urine Leukocyte Esterase Negative Negative /uL Urine RBC <1 0 - 4 /hpf Urine Microscopic WBC 2 0-5 /HPF Urine Squamous Epithelial Cells Few <5 /hpf Urine Bacteria None seen None Seen /hpf Urine Hyaline Casts Few 0 - 2 /lpf Urine Glucose Normal Normal mg/dL White Blood Count 9.4 4.4-10.8 10^3/uL Red Blood Count 3.93 L 4.0-5.20 10^6/uL Hemoglobin 11.9 L 12.2-16.2 g/dL Hematocrit 36.0 36.0-46.0 % Mean Corpuscular Volume 91.6 80.0-100.0 fL Mean Corpuscular Hemoglobin 30.2 28.0-32.0 pg Mean Corpuscular Hemoglobin Concent 32.9 32.0-36.0 g/dL Red Cell Distribution Width 16.1 H 11.8-14.3 % Platelet Count 400 140-450 10^3/uL Mean Platelet Volume 6.7 L 6.9-10.8 fL Neutrophils (%) (Auto) 73.1 37.0-80.0 % Lymphocytes (%) (Auto) 17.1 10.0-50.0 % Monocytes (%) (Auto) 7.0 0.0-12.0 % Eosinophils (%) (Auto) 2.2 0.0-7.0 % Basophils (%) (Auto) 0.6 0.0-2.0 % Neutrophils # (Auto) 6.9 1.6-8.6 10 ^3/uL Lymphocytes # (Auto) 1.6 0.4-5.4 10 ^3/uL Monocytes # (Auto) 0.7 0-1.3 10 ^3/uL Eosinophils # (Auto) 0.2 0-0.8 10 ^3/uL Basophils # (Auto) 0.1 0-0.2 10 ^3/uL Nucleated Red Blood Cells 0.1 % Sodium Level 140 136-145 mmol/L Potassium Level 3.9 3.5-5.1 mmol/L Chloride Level 108 H 98-107 mmol/L Carbon Dioxide Level 19 L 20-31 mmol/L Anion Gap 13 5-15 Blood Urea Nitrogen 16 9-23 mg/dL Creatinine 1.05 H 0.550-1.02 mg/dL Glomerular Filtration Rate Calc 59 >90 mL/min BUN/Creatinine Ratio 15.2 10.0-20.0 Serum Glucose 129 H 74-106 mg/dL Calcium Level 9.2 8.7-10.4 mg/dL Patient alert. Congested. Vitals stable. Answering questions. WBC within normal limits. She has been on antibiotics for a week. Had a course of doxycycline. Continues to be congested. Sinusitis. Was given steroid. Was given Augmentin. Continue to monitor. Time of 1ST Reevaluation: 15:08 Reevaluation 1ST: Unchanged Patient Education/Counseling: Diagnosis, Treatment, Prognosis Family Education/Counseling: No Family Present SEPSIS Sepsis Screen Physician Orders Maxillofacial Without (02/16/25 14:57) Vital Signs Date Time Temp Pulse Resp B/P (MAP) Pulse Ox O2 Delivery O2 Flow Rate FiO2 02/16/25 16:22 109 15 100 Room Air 02/16/25 16:20 98.8 109 15 126/88 (101) 100 98.8 02/16/25 16:13 98.1 100 18 135/91 97 98.1 Laboratory Tests Test 02/16/25 15:00 White Blood Count 9.4 10^3/uL (4.4-10.8) Departure 1 Departure Time of Disposition: 15:47 Impression: Primary Impression: Uncontrolled diabetes mellitus Qualified Codes: E13.65 - Other specified diabetes mellitus with hyperglycemia Additional Impression: Sinusitis Qualified Codes: J01.10 - Acute frontal sinusitis, unspecified Disposition: 09 ADMITTED INPATIENT Admit to: Med Surg Condition: Guarded Critical Care Note Critical Care Time?: No Stability Stability form required: No I personally scribed for CHRISTIE RODRIGUEZ MD ([facility] on 02/16/25 at 15:08. Electronically submitted by Nidia Gordon ([facility]). CHRISTIE RODRIGUEZ MD Feb 16, 2025 15:08
[2025-02-16 15:15] LABS: Hematocrit 36.0 % (36.0-46.0); Hemoglobin 11.9 g/dL (12.2-16.2); Mean Corpuscular Hemoglobin 30.2 pg (28.0-32.0); Mean Corpuscular Volume 91.6 fL (80.0-100.0); Nucleated Red Blood Cells % 0.1 %
[2025-02-16 15:17] LABS: Potassium 3.9 mmol/L (3.5-5.1); Sodium 140 mmol/L (136-145)
[2025-02-16 15:18] LABS: Calcium 9.2 mg/dL (8.7-10.4)
[2025-02-16 15:23] LABS: BUN/Creatinine Ratio 15.2 (10.0-20.0); Blood Urea Nitrogen 16 mg/dL (9-23)
[2025-02-16 15:28] LABS: Anion Gap 13 (5-15); Carbon Dioxide 19 mmol/L (20-31); Chloride 108 mmol/L (98-107); Glucose 129 mg/dL (74-106)
[2025-02-16 17:09] LABS: Urine Protein, UAD Negative (Negative)
--- NOTE | 2025-02-16 17:28 | DVH ---
EXAM: CT MAXILLOFACIAL WITHOUT CLINICAL HISTORY: sinusitis TECHNIQUE: Multiple contiguous axial CT images were obtained through the maxillofacial region without IV contrast. Post processing coronal and sagittal reconstruction images were made from the axial images. Up-to-date CT equipment and radiation dose reduction techniques are utilized as appropriate. COMPARISON: None FINDINGS: The visualized intracranial structures, globes, and orbits are unremarkable. Opacification of the right frontal sinus, anterior right ethmoid air cells, and right maxillary sinus. Opacification of the right ostiomeatal unit. There is otherwise mild paranasal sinus mucosal thickening. There are scattered dental caries and periapical lucencies. 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 The nasal cavity is unremarkable. The nasal septum is midline. 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 IMPRESSION: 1. Right ostiomeatal unit pattern complex sinusitis. 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 2. Additional mild paranasal sinus mucosal thickening which could be inflammatory. 3. Scattered dental caries and periapical lucencies in maxillary and mandibular teeth. 4. 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
[2025-02-16] MEDS ORDERED: ACETAMINOPHEN 325 MG TAB PO PRN (19:30)
[2025-02-16] MEDS ORDERED: ONDANSETRON HCL 4 MG/2 ML VIAL IV PRN (19:30)
[2025-02-16] MEDS ORDERED: DOCUSATE SOD 100 MG CAP PO PRN (19:30)
[2025-02-16] MEDS ORDERED: HYDROcodone-ACET 5/325MG TAB PO PRN (19:30)
[2025-02-16] MEDS ORDERED: DEXTROSE (50%) 50ML SYRG IV PRN (19:30)
--- NOTE | 2025-02-16 21:28 | DVHHP2 ---
History of Present Illness Reason for Visit: Acute frontal sinusitis, unspecified History of Present Illness The patient is a 65-year-old female with past medical history of diabetes mellitus, hyperlipidemia, and hypertension who presented to [facility] ED with complaint of headache. Patient reports that she has been experiencing generalized headache associated with shortness of breaths and nasal congestion. Patient reports that she was diagnosed with sinusitis about 2 months ago and is on her 2nd round of doxycycline which is the 7th day taking the antibiotic. Patient reports that she went to see ENT days ago in which she was told that she needed a procedure, however, she was advised to go to the ER if symptoms persisted or became worse. Patient was seen and evaluated in the ED, laboratory data shows WBC 9.4, hemoglobin 11.9, hematocrit 36.0, platelets 400, sodium 140, potassium 3.9, BUN 16, creatinine 1.05, GFR 59, glucose 129, calcium 9.2, blood pressure 135/90, heart rate 93, temperature 98.3 F, O2 saturation 99% on room air. Maxillofacial CT revealing right ostiomeatal unit pattern complex sinusitis. Please see medication orders section in the computer. On my assessment, patient denied chest pain, no headache, dizziness, diaphoresis, shortness of breaths, no diarrhea, nausea, vomiting, fever, no chills. Patient was admitted for further evaluation and medical management. Past Medical History DM, HTN Past Surgical History section Family History Reviewed, noncontributory to the management of this case. Past Social History The patient lives at home, denies smoking, alcohol or illicit drugs abuse. Review of Systems Constitutional: Yes: Weakness; No: Fever, Chills, Sweats, Malaise, Other Eyes: No: Pain, Vision change, Conjunctivae inflammation, Eyelid inflammation, Other, Redness ENT: No: Ear pain, Ear discharge, Nose pain, Nose discharge, Nose congestion, Mouth pain, Mouth swelling, Throat pain, Throat swelling, Other Respiratory: No: Cough, Dry, Shortness of breath, SOB with excertion, Wheezing, Hemoptysis, Pleuritic Pain, Sputum, Wheezing, Other Cardiovascular: No: Chest Pain, Palpitations, Orthopnea, Paroxysmal Noc. Dyspnea, Edema, Lt Headedness, Other Gastrointestinal: No: Nausea, Vomiting, Abdominal Pain, Diarrhea, Constipation, Melena, Hematochezia, Other Genitourinary: No Dysuria, No Frequency, No Incontinence, No Hematuria, No Retention, No Other Musculoskeletal: No: other, neck pain, shoulder pain, arm pain, back pain, hand pain, leg pain, foot pain Skin: No: Rash, Lesions, Jaundice, Bruising, Other Neurological: Other (Headache); No: Weakness, Numbness, Incoordination, Change in speech, Confusion, Seizures Allergies: Coded Allergies: NO KNOWN ALLERGIES (Unverified , 01/14/24) Medications Current Medications Medications Dose Ordered Sig/Yaniv Route Start Time Stop Time Status Last Admin Dose Admin Aspirin 81 mg DAILY PO 02/17/25 10:00 Atorvastatin Calcium 10 mg HS PO 02/16/25 22:00 Amlodipine Besylate 5 mg DAILY PO 02/17/25 10:00 Clonidine HCl 0.1 mg Q4HP PRN PO 02/16/25 19:30 Metoprolol Tartrate 25 mg BID PO 02/16/25 22:00 Diagnostic Test (Pha) 1 strip ACHS 02/16/25 22:00 Insulin Human Regular HS SC 02/16/25 22:00 Insulin Human Regular AC SC 02/17/25 07:00 Dextrose 50 ml UD PRN IV 02/16/25 19:30 Sodium Chloride 10 ml Q8HR IV 02/16/25 22:00 Acetaminophen/ Hydrocodone Bitart 1 tab Q4HP PRN PO 02/16/25 19:30 Ondansetron HCl 4 mg Q4HP PRN IV 02/16/25 19:30 Docusate Sodium 100 mg BIDPRN PRN PO 02/16/25 19:30 Acetaminophen 650 mg Q6HP PRN PO 02/16/25 19:30 Exam Vital Signs Vital Signs Date Time Temp Pulse Resp B/P (MAP) Pulse Ox O2 Delivery O2 Flow Rate FiO2 02/16/25 21:06 98.5 100 20 139/91 (107) 96 98.5 02/16/25 16:22 Room Air General Appearance: Alert, Oriented X3, Cooperative, No acute distress HEENT: Atraumatic, PERRLA, EOMI, Mucous membr. moist/pink Respiratory: Normal air movement Cardiovascular: Regular rate, Normal S1, Normal S2, No murmurs Abdominal: Normal bowel sounds, Soft, No tenderness, No hepatospenomegaly, No masses Extremities: No clubbing, No cyanosis, No edema, Normal pulses, No tenderness/swelling Skin: No rashes, No significant lesion Neuro: Normal speech, Normal tone, Sensation intact, Cranial nerves 3-12 NL, Reflexes 2+, Other (Generalized weakness) Psych/Mental Status: Mental status NL, Mood NL Labs/Xrays Labs Test 02/16/25 16:15 02/16/25 16:05 02/16/25 15:00 Range/Units POC Glucose 103 70-106 mg/dl Urine Color Light-yellow Yellow Urine Clarity Clear Clear Urine pH 6.0 5.0-9.0 Urine Specific [place] 1.023 1.001-1.035 Urine Protein Negative Negative Urine Ketones Negative Negative Urine Blood Negative Negative /uL Urine Nitrite Negative Negative Urine Bilirubin Negative Negative Urine Urobilinogen Normal Negative mg/dL Urine Leukocyte Esterase Negative Negative /uL Urine RBC <1 0 - 4 /hpf Urine Microscopic WBC 2 0-5 /HPF Urine Squamous Epithelial Cells Few <5 /hpf Urine Bacteria None seen None Seen /hpf Urine Hyaline Casts Few 0 - 2 /lpf Urine Glucose Normal Normal mg/dL White Blood Count 9.4 4.4-10.8 10^3/uL Red Blood Count 3.93 L 4.0-5.20 10^6/uL Hemoglobin 11.9 L 12.2-16.2 g/dL Hematocrit 36.0 36.0-46.0 % Mean Corpuscular Volume 91.6 80.0-100.0 fL Mean Corpuscular Hemoglobin 30.2 28.0-32.0 pg Mean Corpuscular Hemoglobin Concent 32.9 32.0-36.0 g/dL Red Cell Distribution Width 16.1 H 11.8-14.3 % Platelet Count 400 140-450 10^3/uL Mean Platelet Volume 6.7 L 6.9-10.8 fL Neutrophils (%) (Auto) 73.1 37.0-80.0 % Lymphocytes (%) (Auto) 17.1 10.0-50.0 % Monocytes (%) (Auto) 7.0 0.0-12.0 % Eosinophils (%) (Auto) 2.2 0.0-7.0 % Basophils (%) (Auto) 0.6 0.0-2.0 % Neutrophils # (Auto) 6.9 1.6-8.6 10 ^3/uL Lymphocytes # (Auto) 1.6 0.4-5.4 10 ^3/uL Monocytes # (Auto) 0.7 0-1.3 10 ^3/uL Eosinophils # (Auto) 0.2 0-0.8 10 ^3/uL Basophils # (Auto) 0.1 0-0.2 10 ^3/uL Nucleated Red Blood Cells 0.1 % Sodium Level 140 136-145 mmol/L Potassium Level 3.9 3.5-5.1 mmol/L Chloride Level 108 H 98-107 mmol/L Carbon Dioxide Level 19 L 20-31 mmol/L Anion Gap 13 5-15 Blood Urea Nitrogen 16 9-23 mg/dL Creatinine 1.05 H 0.550-1.02 mg/dL Glomerular Filtration Rate Calc 59 >90 mL/min BUN/Creatinine Ratio 15.2 10.0-20.0 Serum Glucose 129 H 74-106 mg/dL Calcium Level 9.2 8.7-10.4 mg/dL PATIENT: MIKE FONSECA ACCT: [id number] UNIT: [id number] : 1960 LOC: ER ROOM / BED: / AGE / SEX: 65 / F ADM STATUS: REG ER SERVICE 1457 ORDERING PHYSICIAN: CHRISTIE RODRIGUEZ MD PROCEDURE(s): FAC2C - MAXILLOFACIAL WITHOUT REASON: sinusitis ORDER NUMBER(s): [id number], ACCESSION NUMBER(s): [id number] EXAM: CT MAXILLOFACIAL WITHOUT CLINICAL HISTORY: sinusitis TECHNIQUE: Multiple contiguous axial CT images were obtained through the maxillofacial region without IV contrast. Post processing coronal and sagittal reconstruction images were made from the axial images. Up-to-date CT equipment and radiation dose reduction techniques are utilized as appropriate. COMPARISON: None FINDINGS: The visualized intracranial structures, globes, and orbits are unremarkable. Opacification of the right frontal sinus, anterior right ethmoid air cells, and right maxillary sinus. Opacification of the right ostiomeatal unit. There is otherwise mild paranasal sinus mucosal thickening. There are scattered dental caries and periapical lucencies. 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 The nasal cavity is unremarkable. The nasal septum is midline. 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 IMPRESSION: 1. Right ostiomeatal unit pattern complex sinusitis. 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 2. Additional mild paranasal sinus mucosal thickening which could be inflammatory. 3. Scattered dental caries and periapical lucencies in maxillary and mandibular teeth. 4. 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 SEPSIS Sepsis Screen Date sepsis recognized/suspect: Feb 16, 2025 Time Sepsis recognized/suspect: 1454 Recent Procedure: No On Antibiotic Therapy: Yes Respiratory Rate >20: No Heart Rate >90: No Temp<36 C (96.8 F) or >38.3 C: No SBP <90 or MAP <65 mmHG: No New Acute Mental Status Change: No Is the patient on CPAP, BIPAP,: No Physician Orders Maxillofacial Without (02/16/25 14:57) Aspirin Chewable Tablet (02/17/25 10:00) Atorvastatin (Lipitor) (02/16/25 22:00) Amlodipine Tablet (Norvasc Tablet) (02/17/25 10:00) Consistent Carb(Ccho)Diabetes (02/17/25 Breakfast) Clonidine Hcl Tablet (Catapres Tablet) (02/16/25 19:30) Metoprolol Tartrate Tablet (Lopressor Ta (02/16/25 22:00) Glucose Blood (Accu-Chek Comfort Curve T (02/16/25 22:00) Insulin R (Human) (Insulin R) (02/16/25 22:00) Insulin R (Human) (Insulin R) (02/17/25 07:00) Dextrose 50% Syringe (02/16/25 19:30) Allergies (02/16/25 19:29) Code Status (02/16/25 19:29) Sodium Chloride Lock (Saline Lock Ns) (02/16/25 22:00) Oxygen Per Hour (02/16/25 19:29) Hydrocodone-Acet 5/325mg Tab ([place] 5/32 (02/16/25 19:30) Ondansetron Hcl (Zofran) (02/16/25 19:30) Docusate Sodium Capsule (Colace Capsule) (02/16/25 19:30) Complete Blood Count (02/17/25 04:00) Comprehensive Metabolic Panel (02/17/25 04:00) Condition: Serious (02/16/25 19:29) Acetaminophen Tablet (Tylenol Tablet) (02/16/25 19:30) Bedrest With Bathroom Privileg (02/16/25 19:29) Sequential Compression Device (02/16/25 ) Vital Signs Date Time Temp Pulse Resp B/P (MAP) Pulse Ox O2 Delivery O2 Flow Rate FiO2 02/16/25 21:06 98.5 100 20 139/91 (107) 96 98.5 02/16/25 18:52 98.3 93 17 135/90 (105) 100 98.3 02/16/25 16:22 109 15 100 Room Air 02/16/25 16:20 98.8 109 15 126/88 (101) 100 98.8 02/16/25 16:13 98.1 100 18 135/91 97 98.1 Laboratory Tests Test 02/16/25 15:00 White Blood Count 9.4 10^3/uL (4.4-10.8) Assessment/Plan Assessment/Plan Headache Sinusitis Uncontrolled diabetes mellitus Generalized weakness Plan 1. Admit to med surge unit 2. Breathing treatment 3. Pain control management 4. Management of fluids and electrolytes 5. Consultation for hospitalist 6. Diagnostic tests maxillofacial CT 7. DVT prophylaxis-on SCDs 8. Repeat labs CBC, CMP in a.m. 9. Continue with current medical management 10. Treatment plan discussed with patient and RN. Patient verbalized understanding. Plan discussed with: Patient, Other (RN) My Orders Orders - ALEJANDRINA ANDERSEN DNP Procedure Category Date Status Time Aspirin Chewable PHA 02/17/25 In Process Tablet 10:00 Atorvastatin (Lipitor) PHA 02/16/25 In Process 22:00 Amlodipine Tablet PHA 02/17/25 In Process (Norvasc Tablet) 10:00 Consistent DIET 02/17/25 Transmitted Carb(Ccho)Diabetes Breakfast Clonidine Hcl Tablet PHA 02/16/25 In Process (Catapres Tablet) 19:30 Metoprolol Tartrate PHA 02/16/25 In Process Tablet (Lopressor Ta 22:00 Glucose Blood PHA 02/16/25 In Process (Accu-Chek Comfort 22:00 Insulin R (Human) PHA 02/16/25 In Process (Insulin R) 22:00 Insulin R (Human) PHA 02/17/25 In Process (Insulin R) 07:00 Dextrose 50% Syringe PHA 02/16/25 In Process 19:30 Allergies RITO 02/16/25 In Process 19:29 Code Status CODE 02/16/25 Transmitted 19:29 Sodium Chloride Lock PHA 02/16/25 In Process (Saline Lock Ns) 22:00 Oxygen Per Hour RT 02/16/25 Transmitted 19:29 Hydrocodone-Acet PHA 02/16/25 In Process 5/325mg Tab ([place] 19:30 Ondansetron Hcl PHA 02/16/25 In Process (Zofran) 19:30 Docusate Sodium PHA 02/16/25 In Process Capsule (Colace 19:30 Complete Blood Count LAB 02/17/25 Verified 04:00 Comprehensive LAB 02/17/25 Verified Metabolic Panel 04:00 Condition: Serious RITO 02/16/25 In Process 19:29 Acetaminophen Tablet PHA 02/16/25 In Process (Tylenol Tablet) 19:30 Bedrest With Bathroom RITO 02/16/25 In Process Privileg 19:29 Sequential RITO 02/16/25 In Process Compression Device Problem List: (1) Headache (2) Sinusitis (3) Uncontrolled diabetes mellitus (4) Generalized weakness Date of Service: Feb 16, 2025 Billing Provider: ALEJANDRINA ANDERSEN DNP Common Visit Codes: [id number] INP/OBS CARE (HIGH) ALEJANDRINA ANDERSEN DNP Feb 16, 2025 21:28
[2025-02-16] MEDS ORDERED: MORPHINE SULFATE INJ 2 MG/ml SYRG IV PRN (21:30)
[2025-02-16] MEDS ORDERED: NITROGLYCERIN 0.4 MG SL TAB SL PRN (21:30)
[2025-02-16] MEDS: SODIUM CHLOR 0.9% PF (SALINE LOCK) 10ML VIAL/SYR IV SCH (22:00)
[2025-02-16] MEDS: ACCU-CHEK COMFORT CURVE STRIP VI SCH (22:00)
[2025-02-16] MEDS: InsuLIN REG 1unit/0.01ml Soln (100units/ml) SC SCH (22:00)
[2025-02-17 00:10] VITALS: PULSE 90; RESP 16; O2SAT 99
[2025-02-17] MEDS: METOPROLOL TARTRATE 25 MG TAB PO SCH (00:56)
[2025-02-17] MEDS: ATORVASTATIN 20 MG TAB PO SCH (00:56)
[2025-02-17] MEDS: TOPIRAMATE 25 MG TAB PO SCH (00:57)
[2025-02-17] MEDS: InsuLIN REG 1unit/0.01ml Soln (100units/ml) SC SCH (07:00)
[2025-02-17 08:50] LABS: Hematocrit 36.4 % (36.0-46.0); Hemoglobin 11.8 g/dL (12.2-16.2); Mean Corpuscular Hemoglobin 29.7 pg (28.0-32.0); Mean Corpuscular Volume 91.6 fL (80.0-100.0); Nucleated Red Blood Cells % 0.0 %
[2025-02-17 09:00] VITALS: BP 154/74; PULSE 90; RESP 18; TEMP 98.4; O2SAT 98
[2025-02-17 09:16] LABS: Alanine Aminotransferase 27 U/L (7-40); Albumin 4.4 g/dL (3.2-4.8); Anion Gap 10 (5-15); BUN/Creatinine Ratio 18.3 (10.0-20.0); Bilirubin, Total 0.4 mg/dL (0.2-1.0); Blood Urea Nitrogen 17 mg/dL (9-23); Calcium 9.5 mg/dL (8.7-10.4); Carbon Dioxide 22 mmol/L (20-31); Glucose 103 mg/dL (74-106); Potassium 4.0 mmol/L (3.5-5.1); Sodium 140 mmol/L (136-145); Total Protein 7.2 g/dL (5.7-8.2)
[2025-02-17 09:17] LABS: Chloride 108 mmol/L (98-107)
[2025-02-17 09:18] LABS: Alkaline Phosphatase 137 U/L (46-116)
[2025-02-17 13:00] VITALS: BP 150/99; PULSE 88; RESP 16; TEMP 97.9; O2SAT 98
[2025-02-17] MEDS ORDERED: METHOCARBAMOL 500 MG TAB PO PRN (16:30)
--- NOTE | 2025-02-17 16:34 | DVHPN2 ---
Subjective Patient continues to report having severe headache, difficulty breathing through her nasal passages. Reviewed: Care Plan, H&P, Labs, Medications Changes from previous H/P or p: No Changes General: Per HPI Eyes: No Pain, No Vision change, No Conjunctivae inflammation, No Eyelid inflammation, No Other, No Redness ENT: No Ear pain, No Ear discharge, No Nose pain, No Nose discharge, No Nose congestion, No Mouth pain, No Mouth swelling, No Throat pain, No Throat swelling, No Other Cardiovascular: No Chest Pain, No Palpitations, No Orthopnea, No Paroxysmal Noc. Dyspnea, No Edema, No Lt Headedness, No Other Respiratory: No Cough, No Dry, No Shortness of breath, No SOB with excertion, No Wheezing, No Hemoptysis, No Pleuritic Pain, No Sputum, No Other Gastrointestinal: No Nausea, No Vomiting, No Abdominal Pain, No Diarrhea, No Constipation, No Melena, No Hematochezia, No Other Genitourinary: No Dysuria, No Frequency, No Incontinence, No Hematuria, No Retention, No Other Musculoskeletal: No other, No neck pain, No shoulder pain, No arm pain, No back pain, No hand pain, No leg pain, No foot pain Skin: No Rash, No Lesions, No Jaundice, No Bruising, No Other Objective Vitals Vital Signs Date Time Temp Pulse Resp B/P (MAP) Pulse Ox O2 Delivery O2 Flow Rate FiO2 02/17/25 13:00 97.9 88 16 150/99 (116) 98 97.9 02/17/25 08:05 Room Air* 0 21 Intake/Output Intake and Output 02/17/25 07:00 Intake Total 240 ml Balance 240 ml Intake Oral 240 ml # Voids 2 General Appearance: Alert, Oriented X3, Cooperative, mild distress HEENT: Atraumatic, PERRLA Lungs: Clear to auscultation, Normal air movement Cardiovascular: Normal S1, Normal S2 Abdomen: Normal bowel sounds, Soft, No tenderness Genitourinary: No Apparent Abnormalities Back: Flank Tenderness, Midline Tenderness Musculoskeletal: Normal sensory function, Normal motor function Neuro: Normal gait, Normal speech Skin: Dry, Intact Psych/Mental Status: Mental status NL, Mood NL Medications Current Medications Medications Dose Ordered Sig/Yaniv Route Start Time Stop Time Status Last Admin Dose Admin Aspirin 81 mg DAILY PO 02/17/25 10:00 02/17/25 11:11 81 MG Atorvastatin Calcium 10 mg HS PO 02/16/25 22:00 02/17/25 00:56 10 MG Amlodipine Besylate 5 mg DAILY PO 02/17/25 10:00 02/17/25 11:11 5 MG Clonidine HCl 0.1 mg Q4HP PRN PO 02/16/25 19:30 Metoprolol Tartrate 25 mg BID PO 02/16/25 22:00 02/17/25 11:10 25 MG Diagnostic Test (Pha) 1 strip ACHS 02/16/25 22:00 02/17/25 11:24 1 STRIP Insulin Human Regular HS SC 02/16/25 22:00 Insulin Human Regular AC SC 02/17/25 07:00 02/17/25 11:23 2 UNITS Dextrose 50 ml UD PRN IV 02/16/25 19:30 Sodium Chloride 10 ml Q8HR IV 02/16/25 22:00 02/17/25 15:25 10 ML Acetaminophen/ Hydrocodone Bitart 1 tab Q4HP PRN PO 02/16/25 19:30 Ondansetron HCl 4 mg Q4HP PRN IV 02/16/25 19:30 Docusate Sodium 100 mg BIDPRN PRN PO 02/16/25 19:30 Acetaminophen 650 mg Q6HP PRN PO 02/16/25 19:30 Nitroglycerin 0.4 mg Q5MINP PRN SL 02/16/25 21:30 Morphine Sulfate 2 mg Q30M PRN IV 02/16/25 21:30 Topiramate 25 mg BID PO 02/16/25 22:00 02/17/25 11:12 25 MG Piperacillin Sod/ Tazobactam Sod 100 ml @ 25 mls/hr Q8HR IV 02/17/25 22:00 UNV Methocarbamol 500 mg QIDPRN PRN PO 02/17/25 16:30 UNV Laboratory Results Laboratory Tests 02/17/25 08:14 Chemistry Test 02/17/25 08:14 Albumin 4.4 g/dL (3.2-4.8) Calcium Level 9.5 mg/dL (8.7-10.4) Total Protein 7.2 g/dL (5.7-8.2) LFT Test 02/17/25 08:14 Alanine Aminotransferase (ALT) 27 U/L (7-40) Alkaline Phosphatase 137 U/L (46-116) H Aspartate Amino Transferase (AST) 17 U/L (13-40) Total Bilirubin 0.4 mg/dL (0.2-1.0) Urinalysis Test 02/16/25 16:05 Urine Color Light-yellow (Yellow) Urine Clarity Clear (Clear) Urine pH 6.0 (5.0-9.0) Urine Specific [place] 1.023 (1.001-1.035) Urine Protein Negative (Negative) Urine Ketones Negative (Negative) Urine Blood Negative /uL (Negative) Urine Nitrite Negative (Negative) Urine Bilirubin Negative (Negative) Urine Urobilinogen Normal mg/dL (Negative) Urine Leukocyte Esterase Negative /uL (Negative) Urine RBC <1 /hpf (0 - 4) Urine Microscopic WBC 2 /HPF (0-5) Urine Squamous Epithelial Cells Few /hpf (<5) Urine Bacteria None seen /hpf (None Seen) Urine Hyaline Casts Few /lpf (0 - 2) Urine Glucose Normal mg/dL (Normal) Labs and/or images reviewed: Labs reviewed by me, Image(s) reviewed by me Assessment/Plan Assessment/Plan Impression: -sinus infection -migraine -accelerated hypertension -primary hypertension -dyslipidemia Plan: -start IV antibiotic therapy with Zosyn -gentle IV hydration -continue primary hypertension -pain management with Zanaflex and [place] -statin -repeat labs in a.m. Total time spent with patient discussing and formulating plan of care: 35 minutes. This medical document was created using an electronic medical record system with [employer] dictation system. Although this document has been carefully reviewed, there may still be some phonetic and typographical errors. These areas are purely typographical due to imperfections of the software programs, and do not reflect any compromise in the patient's medical care. Plan discussed with: Patient, Other (RN) My Orders Orders - LUDA GARBER NP Procedure Category Date Status Time Piperacillin-Tazob PHA 02/17/25 Logged 3.375gm (Zosyn 3.375g 22:00 Methocarbamol PHA 02/17/25 Transmitted (Robaxin) 16:30 NS PHA 02/17/25 Verified 16:30 Date of Service: Feb 17, 2025 Billing Provider: LUDA GARBER NP Common Visit Codes: [id number] INP/OBS CARE(HIGH) LUDA GARBER DIRECT CUSTOMER SERVICE REPRESENTATIVE Feb 17, 2025 16:34
[2025-02-17 17:00] VITALS: BP 129/90; PULSE 91; RESP 20; TEMP 98.2; O2SAT 100
[2025-02-17] MEDS: SODIUM CHLORIDE 0.9% 1,000 ML IV ONE ×2 (17:53→22:15)
[2025-02-17] MEDS: PIPERACILLIN-TAZOB 3.375GM 100 ML IV ONE (19:08)
[2025-02-17 21:00] VITALS: BP 147/87; PULSE 77; RESP 16; TEMP 98.3; O2SAT 96
[2025-02-17 21:05] VITALS: BP 162/99; PULSE 104; RESP 18; TEMP 97.5; O2SAT 99
[2025-02-17] MEDS: PIPERACILLIN-TAZOB 3.375GM 100 ML IV SCH (22:00)
[2025-02-17] MEDS ORDERED: MORPHINE SULFATE INJ 2 MG/ml SYRG IV PRN (22:15)
[2025-02-17] MEDS ORDERED: DEXTROSE (50%) 50ML SYRG IV PRN (22:15)
[2025-02-17] MEDS ORDERED: ONDANSETRON HCL 4 MG/2 ML VIAL IV PRN (22:15)
[2025-02-17] MEDS ORDERED: DOCUSATE SOD 100 MG CAP PO PRN (22:15)
[2025-02-17] MEDS ORDERED: NITROGLYCERIN 0.4 MG SL TAB SL PRN (22:15)
[2025-02-17] MEDS ORDERED: ACETAMINOPHEN 325 MG TAB PO PRN (22:15)
[2025-02-17] MEDS: METHOCARBAMOL 500 MG TAB PO PRN (23:27)
[2025-02-17] MEDS: HYDROcodone-ACET 5/325MG TAB PO PRN (23:28)
[2025-02-18 01:15] VITALS: BP 147/82; PULSE 86; RESP 17; TEMP 98; O2SAT 100
[2025-02-18 04:43] VITALS: BP 117/83; PULSE 99; RESP 18; TEMP 97; O2SAT 97
[2025-02-18] MEDS: PIPERACILLIN-TAZOB 3.375GM 100 ML IV SCH (05:53)
[2025-02-18] MEDS: SODIUM CHLOR 0.9% PF (SALINE LOCK) 10ML VIAL/SYR IV SCH (05:53)
[2025-02-18] MEDS: InsuLIN REG 1unit/0.01ml Soln (100units/ml) SC SCH ×2 (06:08→21:35)
[2025-02-18] MEDS: ACCU-CHEK COMFORT CURVE STRIP VI SCH (06:08)
--- NOTE | 2025-02-18 08:07 | DVHPN2 ---
Subjective Course of the headache has improved. Continues to have frontal lobe stuffiness and pressure. Reviewed: Care Plan, H&P, Labs, Medications Changes from previous H/P or p: Changes General: Per HPI Eyes: No Pain, No Vision change, No Conjunctivae inflammation, No Eyelid inflammation, No Other, No Redness ENT: No Ear pain, No Ear discharge, No Nose pain, No Nose discharge, No Nose congestion, No Mouth pain, No Mouth swelling, No Throat pain, No Throat swelling, No Other Cardiovascular: No Chest Pain, No Palpitations, No Orthopnea, No Paroxysmal Noc. Dyspnea, No Edema, No Lt Headedness, No Other Respiratory: No Cough, No Dry, No Shortness of breath, No SOB with excertion, No Wheezing, No Hemoptysis, No Pleuritic Pain, No Sputum, No Other Gastrointestinal: No Nausea, No Vomiting, No Abdominal Pain, No Diarrhea, No Constipation, No Melena, No Hematochezia, No Other Genitourinary: No Dysuria, No Frequency, No Incontinence, No Hematuria, No Retention, No Other Musculoskeletal: No other, No neck pain, No shoulder pain, No arm pain, No back pain, No hand pain, No leg pain, No foot pain Skin: No Rash, No Lesions, No Jaundice, No Bruising, No Other Objective Vitals Vital Signs Date Time Temp Pulse Resp B/P (MAP) Pulse Ox O2 Delivery O2 Flow Rate FiO2 02/18/25 04:43 97.0 99 18 117/83 (94) 97 97.0 02/17/25 20:00 Room Air* 0 21 Intake/Output Intake and Output 02/18/25 07:00 Intake Total 250 ml Balance 250 ml Intake Oral 150 ml IV Total 100 ml # Voids 2 # Bowel Movements 1 General Appearance: Alert, Oriented X3, Cooperative, mild distress HEENT: Atraumatic, PERRLA Lungs: Clear to auscultation, Normal air movement Cardiovascular: Normal S1, Normal S2 Abdomen: Normal bowel sounds, Soft, No tenderness Genitourinary: No Apparent Abnormalities Back: Flank Tenderness, Midline Tenderness Musculoskeletal: Normal sensory function, Normal motor function Neuro: Normal gait, Normal speech Skin: Dry, Intact Psych/Mental Status: Mental status NL, Mood NL Medications Current Medications Medications Dose Ordered Sig/Yaniv Route Start Time Stop Time Status Last Admin Dose Admin Aspirin 81 mg DAILY PO 02/18/25 10:00 Atorvastatin Calcium 10 mg HS PO 02/18/25 22:00 Amlodipine Besylate 5 mg DAILY PO 02/18/25 10:00 Clonidine HCl 0.1 mg Q4HP PRN PO 02/17/25 22:15 02/17/25 23:09 0.1 MG Metoprolol Tartrate 25 mg BID PO 02/18/25 10:00 Diagnostic Test (Pha) 1 strip ACHS 02/18/25 07:00 02/18/25 06:08 1 STRIP Insulin Human Regular HS SC 02/18/25 22:00 Insulin Human Regular AC SC 02/18/25 07:00 Dextrose 50 ml UD PRN IV 02/17/25 22:15 Sodium Chloride 10 ml Q8HR IV 02/18/25 06:00 02/18/25 05:53 10 ML Acetaminophen/ Hydrocodone Bitart 1 tab Q4HP PRN PO 02/17/25 22:15 02/17/25 23:28 1 TAB Ondansetron HCl 4 mg Q4HP PRN IV 02/17/25 22:15 Docusate Sodium 100 mg BIDPRN PRN PO 02/17/25 22:15 Acetaminophen 650 mg Q6HP PRN PO 02/17/25 22:15 Topiramate 25 mg BID PO 02/18/25 10:00 Methocarbamol 500 mg QIDPRN PRN PO 02/17/25 22:15 02/17/25 23:27 500 MG Piperacillin Sod/ Tazobactam Sod 100 ml @ 25 mls/hr Q8HR IV 02/18/25 06:00 02/18/25 05:53 25 MLS/HR Laboratory Results Laboratory Tests 02/17/25 08:14 Chemistry Test 02/17/25 08:14 Albumin 4.4 g/dL (3.2-4.8) Calcium Level 9.5 mg/dL (8.7-10.4) Total Protein 7.2 g/dL (5.7-8.2) LFT Test 02/17/25 08:14 Alanine Aminotransferase (ALT) 27 U/L (7-40) Alkaline Phosphatase 137 U/L (46-116) H Aspartate Amino Transferase (AST) 17 U/L (13-40) Total Bilirubin 0.4 mg/dL (0.2-1.0) Urinalysis Test 02/16/25 16:05 Urine Color Light-yellow (Yellow) Urine Clarity Clear (Clear) Urine pH 6.0 (5.0-9.0) Urine Specific [place] 1.023 (1.001-1.035) Urine Protein Negative (Negative) Urine Ketones Negative (Negative) Urine Blood Negative /uL (Negative) Urine Nitrite Negative (Negative) Urine Bilirubin Negative (Negative) Urine Urobilinogen Normal mg/dL (Negative) Urine Leukocyte Esterase Negative /uL (Negative) Urine RBC <1 /hpf (0 - 4) Urine Microscopic WBC 2 /HPF (0-5) Urine Squamous Epithelial Cells Few /hpf (<5) Urine Bacteria None seen /hpf (None Seen) Urine Hyaline Casts Few /lpf (0 - 2) Urine Glucose Normal mg/dL (Normal) Labs and/or images reviewed: Labs reviewed by me, Image(s) reviewed by me Assessment/Plan Assessment/Plan Impression: -sinus infection -migraine -accelerated hypertension -primary hypertension -dyslipidemia Plan: Events: No events overnight. Continue current treatment plan. -IV antibiotic therapy with Zosyn -gentle IV hydration -continue primary hypertension -pain management with Zanaflex and [place] -statin -repeat labs this a.m.. Total time spent with patient discussing and formulating plan of care: 35 minutes. This medical document was created using an electronic medical record system with [employer] dictation system. Although this document has been carefully reviewed, there may still be some phonetic and typographical errors. These areas are purely typographical due to imperfections of the software programs, and do not reflect any compromise in the patient's medical care. Plan discussed with: Patient, Other (RN) My Orders Orders - LUDA GARBER RECREATION CLERK Procedure Category Date Status Time Methocarbamol PHA 02/17/25 In Process (Robaxin) 22:15 Sodium Chloride 0.9% PHA 02/17/25 In Process 22:15 Piperacillin-Tazob PHA 02/18/25 In Process 3.375gm (Zosyn 3.375g 06:00 Basic Metabolic Panel LAB 02/18/25 Logged 07:58 Complete Blood Count LAB 02/18/25 Logged 07:58 Date of Service: Feb 18, 2025 Billing Provider: LUDA GARBER RECREATION CLERK Common Visit Codes: [id number] INP/OBS CARE(HIGH) LUDA GARBER RECREATION CLERK Feb 18, 2025 08:07
[2025-02-18 09:00] VITALS: BP 144/89; PULSE 97; RESP 18; TEMP 97.3; O2SAT 97
[2025-02-18 09:26] LABS: Hematocrit 35.0 % (36.0-46.0); Hemoglobin 11.7 g/dL (12.2-16.2); Mean Corpuscular Hemoglobin 31.0 pg (28.0-32.0); Mean Corpuscular Volume 92.5 fL (80.0-100.0); Nucleated Red Blood Cells % 0.0 %
[2025-02-18] MEDS: TOPIRAMATE 25 MG TAB PO SCH (09:57)
[2025-02-18] MEDS: METOPROLOL TARTRATE 25 MG TAB PO SCH (09:57)
[2025-02-18 10:00] LABS: Potassium 3.9 mmol/L (3.5-5.1); Sodium 140 mmol/L (136-145)
[2025-02-18 10:01] LABS: Anion Gap 9 (5-15); Calcium 8.9 mg/dL (8.7-10.4); Carbon Dioxide 23 mmol/L (20-31)
[2025-02-18 10:06] LABS: BUN/Creatinine Ratio 13.6 (10.0-20.0); Blood Urea Nitrogen 12 mg/dL (9-23)
[2025-02-18 10:11] LABS: Chloride 108 mmol/L (98-107); Glucose 161 mg/dL (74-106)
[2025-02-18 17:19] VITALS: BP 119/80; PULSE 87; RESP 18; TEMP 97.3; O2SAT 98
[2025-02-18 20:00] VITALS: PULSE 96; RESP 18; O2SAT 99
[2025-02-18 21:00] VITALS: BP 130/91; PULSE 96; RESP 18; TEMP 98.4; O2SAT 99
[2025-02-18] MEDS: ATORVASTATIN 20 MG TAB PO SCH (21:24)
[2025-02-19] VITALS (7 sets, daily range): BP systolic 122–147; BP diastolic 78–92; PULSE 78–89; RESP 16–20; TEMP 97.2–98.4; O2SAT 96–99
--- NOTE | 2025-02-19 13:59 | DVHPN2 ---
Subjective Course of the headache has improved. Continues to have frontal lobe stuffiness and pressure. Reviewed: Care Plan, H&P, Labs, Medications Changes from previous H/P or p: No Changes General: Per HPI Eyes: No Pain, No Vision change, No Conjunctivae inflammation, No Eyelid inflammation, No Other, No Redness ENT: No Ear pain, No Ear discharge, No Nose pain, No Nose discharge, No Nose congestion, No Mouth pain, No Mouth swelling, No Throat pain, No Throat swelling, No Other Cardiovascular: No Chest Pain, No Palpitations, No Orthopnea, No Paroxysmal Noc. Dyspnea, No Edema, No Lt Headedness, No Other Respiratory: No Cough, No Dry, No Shortness of breath, No SOB with excertion, No Wheezing, No Hemoptysis, No Pleuritic Pain, No Sputum, No Other Gastrointestinal: No Nausea, No Vomiting, No Abdominal Pain, No Diarrhea, No Constipation, No Melena, No Hematochezia, No Other Genitourinary: No Dysuria, No Frequency, No Incontinence, No Hematuria, No Retention, No Other Musculoskeletal: No other, No neck pain, No shoulder pain, No arm pain, No back pain, No hand pain, No leg pain, No foot pain Skin: No Rash, No Lesions, No Jaundice, No Bruising, No Other Objective Vitals Vital Signs Date Time Temp Pulse Resp B/P (MAP) Pulse Ox O2 Delivery O2 Flow Rate FiO2 02/19/25 09:12 131/88 02/19/25 09:11 86 02/19/25 09:00 97.2 19 99 97.2 02/19/25 08:00 Room Air* 0 21 Intake/Output Intake and Output 02/19/25 07:00 Intake Total 2380 ml Balance 2380 ml Intake Oral 2080 ml IV Total 300 ml # Voids 5 # Bowel Movements 1 General Appearance: Alert, Oriented X3, Cooperative, mild distress HEENT: Atraumatic, PERRLA Lungs: Clear to auscultation, Normal air movement Cardiovascular: Normal S1, Normal S2 Abdomen: Normal bowel sounds, Soft, No tenderness Genitourinary: No Apparent Abnormalities Back: Flank Tenderness, Midline Tenderness Musculoskeletal: Normal sensory function, Normal motor function Neuro: Normal gait, Normal speech Skin: Dry, Intact Psych/Mental Status: Mental status NL, Mood NL Medications Current Medications Medications Dose Ordered Sig/Yaniv Route Start Time Stop Time Status Last Admin Dose Admin Aspirin 81 mg DAILY PO 02/18/25 10:00 02/19/25 09:12 81 MG Atorvastatin Calcium 10 mg HS PO 02/18/25 22:00 02/18/25 21:24 10 MG Amlodipine Besylate 5 mg DAILY PO 02/18/25 10:00 02/19/25 09:12 5 MG Clonidine HCl 0.1 mg Q4HP PRN PO 02/17/25 22:15 02/17/25 23:09 0.1 MG Metoprolol Tartrate 25 mg BID PO 02/18/25 10:00 02/19/25 09:11 25 MG Diagnostic Test (Pha) 1 strip ACHS 02/18/25 07:00 02/19/25 06:30 1 STRIP Insulin Human Regular HS SC 02/18/25 22:00 02/18/25 21:35 2 UNITS Insulin Human Regular AC SC 02/18/25 07:00 02/19/25 06:31 2 UNITS Dextrose 50 ml UD PRN IV 02/17/25 22:15 Sodium Chloride 10 ml Q8HR IV 02/18/25 06:00 02/19/25 06:31 10 ML Acetaminophen/ Hydrocodone Bitart 1 tab Q4HP PRN PO 02/17/25 22:15 02/18/25 21:26 1 TAB Ondansetron HCl 4 mg Q4HP PRN IV 02/17/25 22:15 Docusate Sodium 100 mg BIDPRN PRN PO 02/17/25 22:15 Acetaminophen 650 mg Q6HP PRN PO 02/17/25 22:15 Topiramate 25 mg BID PO 02/18/25 10:00 02/19/25 09:11 25 MG Methocarbamol 500 mg QIDPRN PRN PO 02/17/25 22:15 02/19/25 09:16 500 MG Piperacillin Sod/ Tazobactam Sod 100 ml @ 25 mls/hr Q8HR IV 02/18/25 06:00 02/19/25 06:30 25 MLS/HR Laboratory Results Laboratory Tests 02/18/25 08:48 Urinalysis Test 02/16/25 16:05 Urine Color Light-yellow (Yellow) Urine Clarity Clear (Clear) Urine pH 6.0 (5.0-9.0) Urine Specific [place] 1.023 (1.001-1.035) Urine Protein Negative (Negative) Urine Ketones Negative (Negative) Urine Blood Negative /uL (Negative) Urine Nitrite Negative (Negative) Urine Bilirubin Negative (Negative) Urine Urobilinogen Normal mg/dL (Negative) Urine Leukocyte Esterase Negative /uL (Negative) Urine RBC <1 /hpf (0 - 4) Urine Microscopic WBC 2 /HPF (0-5) Urine Squamous Epithelial Cells Few /hpf (<5) Urine Bacteria None seen /hpf (None Seen) Urine Hyaline Casts Few /lpf (0 - 2) Urine Glucose Normal mg/dL (Normal) Labs and/or images reviewed: Labs reviewed by me, Image(s) reviewed by me Assessment/Plan Assessment/Plan Impression: -sinus infection -migraine -accelerated hypertension -primary hypertension -dyslipidemia Plan: Events: No events overnight. No change in a/P on 02/19/2025. Patient does report improvement with her clinical symptoms. -IV antibiotic therapy with Zosyn -gentle IV hydration -continue primary hypertension -pain management with Zanaflex and [place] -statin Re-evaluate for discharge in a.m. Total time spent with patient discussing and formulating plan of care: 35 minutes. This medical document was created using an electronic medical record system with [employer] computerized dictation system. Although this document has been carefully reviewed, there may still be some phonetic and typographical errors. These areas are purely typographical due to imperfections of the software programs, and do not reflect any compromise in the patient's medical care. Plan discussed with: Patient, Other (RN) Date of Service: Feb 19, 2025 Billing Provider: LUDA GARBER NP Common Visit Codes: [id number] INP/OBS CARE(HIGH) LUDA GARBER NP Feb 19, 2025 13:58
[2025-02-20 01:00] VITALS: BP 116/85; PULSE 80; RESP 16; TEMP 97.9; O2SAT 98
[2025-02-20 05:00] VITALS: BP 128/83; PULSE 85; RESP 16; TEMP 97.8; O2SAT 96
[2025-02-20 08:00] VITALS: RESP 20
[2025-02-20 09:00] VITALS: BP 122/89; PULSE 81; RESP 17; TEMP 97.6; O2SAT 97
[2025-02-20] MEDS ORDERED: AUG875T PO (09:30)
--- NOTE | 2025-02-20 09:34 | DVHDS2 ---
Discharge Summary Date of Admission Feb 16, 2025 at 21:27 Date of Discharge: Feb 20, 2025 Admitting Diagnosis Sinusitis Labs/Diagnostic Data: Laboratory Results Test 02/20/25 05:33 02/18/25 08:48 02/17/25 08:14 02/16/25 16:05 POC Glucose 132 mg/dl (70-106) White Blood Count 7.5 10^3/uL (4.4-10.8) Red Blood Count 3.78 10^6/uL (4.0-5.20) Hemoglobin 11.7 g/dL (12.2-16.2) Hematocrit 35.0 % (36.0-46.0) Mean Corpuscular Volume 92.5 fL (80.0-100.0) Mean Corpuscular Hemoglobin 31.0 pg (28.0-32.0) Mean Corpuscular Hemoglobin Concent 33.5 g/dL (32.0-36.0) Red Cell Distribution Width 15.8 % (11.8-14.3) Platelet Count 346 10^3/uL (140-450) Mean Platelet Volume 6.8 fL (6.9-10.8) Neutrophils (%) (Auto) 53.5 % (37.0-80.0) Lymphocytes (%) (Auto) 31.4 % (10.0-50.0) Monocytes (%) (Auto) 10.0 % (0.0-12.0) Eosinophils (%) (Auto) 4.5 % (0.0-7.0) Basophils (%) (Auto) 0.6 % (0.0-2.0) Neutrophils # (Auto) 4.0 10 ^3/uL (1.6-8.6) Lymphocytes # (Auto) 2.3 10 ^3/uL (0.4-5.4) Monocytes # (Auto) 0.8 10 ^3/uL (0-1.3) Eosinophils # (Auto) 0.3 10 ^3/uL (0-0.8) Basophils # (Auto) 0 10 ^3/uL (0-0.2) Nucleated Red Blood Cells 0.0 % Sodium Level 140 mmol/L (136-145) Potassium Level 3.9 mmol/L (3.5-5.1) Chloride Level 108 mmol/L (98-107) Carbon Dioxide Level 23 mmol/L (20-31) Anion Gap 9 (5-15) Blood Urea Nitrogen 12 mg/dL (9-23) Creatinine 0.88 mg/dL (0.550-1.02) Glomerular Filtration Rate Calc 73 mL/min (>90) BUN/Creatinine Ratio 13.6 (10.0-20.0) Serum Glucose 161 mg/dL (74-106) Calcium Level 8.9 mg/dL (8.7-10.4) Total Bilirubin 0.4 mg/dL (0.2-1.0) Aspartate Amino Transferase (AST) 17 U/L (13-40) Alanine Aminotransferase (ALT) 27 U/L (7-40) Alkaline Phosphatase 137 U/L (46-116) Total Protein 7.2 g/dL (5.7-8.2) Albumin 4.4 g/dL (3.2-4.8) Urine Color Light-yellow (Yellow) Urine Clarity Clear (Clear) Urine pH 6.0 (5.0-9.0) Urine Specific [place] 1.023 (1.001-1.035) Urine Protein Negative (Negative) Urine Ketones Negative (Negative) Urine Blood Negative /uL (Negative) Urine Nitrite Negative (Negative) Urine Bilirubin Negative (Negative) Urine Urobilinogen Normal mg/dL (Negative) Urine Leukocyte Esterase Negative /uL (Negative) Urine RBC <1 /hpf (0 - 4) Urine Microscopic WBC 2 /HPF (0-5) Urine Squamous Epithelial Cells Few /hpf (<5) Urine Bacteria None seen /hpf (None Seen) Urine Hyaline Casts Few /lpf (0 - 2) Urine Glucose Normal mg/dL (Normal) Other Laboratory Tests 02/18/25 08:48 Brief Hx & Hospital Course: History of Present Illness The patient is a 65-year-old female with past medical history of diabetes mellitus, hyperlipidemia, and hypertension who presented to [facility] ED with complaint of headache. Patient reports that she has been experiencing generalized headache associated with shortness of breaths and nasal congestion. Patient reports that she was diagnosed with sinusitis about 2 months ago and is on her 2nd round of doxycycline which is the 7th day taking the antibiotic. Patient reports that she went to see ENT days ago in which she was told that she needed a procedure, however, she was advised to go to the ER if symptoms persisted or became worse. Patient was seen and evaluated in the ED, laboratory data shows WBC 9.4, hemoglobin 11.9, hematocrit 36.0, platelets 400, sodium 140, potassium 3.9, BUN 16, creatinine 1.05, GFR 59, glucose 129, calcium 9.2, blood pressure 135/90, heart rate 93, temperature 98.3 F, O2 saturation 99% on room air. Maxillofacial CT revealing right ostiomeatal unit pattern complex sinusitis. Please see medication orders section in the computer. On my assessment, patient denied chest pain, no headache, dizziness, diaphoresis, shortness of breaths, no diarrhea, nausea, vomiting, fever, no chills. Patient was admitted for further evaluation and medical management. Course of hospitalization: Upon evaluation of the patient with the emergency room where she was found to have severe throbbing headache, inability to breathe through her nose, as well as appreciated tachycardia of bedside monitor of 110 beats per minute. Repeat CBC reveals leukocytosis. Patient was started on IV antibiotic therapy with Zosyn. Repeat CBC reveals resolution of leukocytosis. Patient remains afebrile. Vital signs have normalized. Patient's symptoms have improved dramatically, at which time she will be discharged home. She will be continued on Augmentin 875 mg p.o. b.i.d. for seven days in his instructed to follow up with her PCP as well as her ENT doctor for further recommendations. Home medication reconciliation was performed for which she will resume all home medications other than previously prescribed antibiotics. Physical examination General: Alert and Oriented x3. No acute distress. Well-nourished. Eyes: EOMI. Anicteric. HENT: Moist mucous membranes. Lungs: Clear to auscultation bilaterally. No accessory muscle use. Cardiovascular: Regular rate and rhythm. No murmur. No JVD. Abdomen: Soft, non-tender and non-distended. No palpable masses. Extremities: No edema. Non-tender. Skin: No rashes or lesions. Warm. Neurologic: No focal neurological deficits. CN II-XII grossly intact, but not individually tested. Psychiatric: Cooperative. Appropriate mood and affect. Total time spent with patient discussing and formulating plan of care: 35 minutes. This medical document was created using an electronic medical record system with [employer] dictation system. Although this document has been carefully reviewed, there may still be some phonetic and typographical errors. These areas are purely typographical due to imperfections of the software programs, and do not reflect any compromise in the patient's medical care. Condition at Discharge: Fair Final Diagnosis/Problems List Sepsis secondary to recurrent frontal lobe sinus infection -migraine -accelerated hypertension -primary hypertension -dyslipidemia Discharge Disposition: Home Discharge Instruct/Medications Diet: Regular Activity: No Restrictions, As Tolerated Follow Up/Referral: Follow up with ENT doctor at next available appointment Follow up with PCP in 1-2 weeks Medications: Augmentin 875 mg p.o. b.i.d. x7 days Continue all home medications Scheduled Amitriptyline Hcl (Amitriptyline Hcl), 50 MG PO DAILY, (Reported) Amlodipine Besylate (Norvasc Tablet), 10 MG PO DAILY Amoxicillin & Pot Clavulanate (Augmentin Tablet), 875 MG PO BID Amoxicillin & Pot Clavulanate (Augmentin Tablet), 875 MG PO BID Aspirin (Aspir-Low), 81 MG PO DAILY, (Reported) Dicyclomine Hcl (Dicyclomine Hcl), 10 MG PO BID, (Reported) Hydralazine HCl (Hydralazine HCl), 50 MG PO TID Methocarbamol (Methocarbamol), 750 MG PO TID, (Reported) Metoprolol Succinate (Metoprolol Succinate Er), 100 MG PO DAILY, (Reported) Rosuvastatin Calcium (Crestor), 1 TAB PO DAILY, (Reported) Tizanidine Hydrochloride (Zanaflex), 1 CAP PO TID, (Reported) Topiramate (Topiramate), 100 MG PO TID, (Reported) Valsartan (Valsartan), 320 MG PO DAILY Zonisamide (Zonisamide), 100 MG PO TID, (Reported) Scheduled PRN Rimegepant Sulfate (Nurtec), 75 MG PO for PRN Daily, (Reported) Miscellaneous Medications Glipizide (Glipizide), 5 MG PO, (Reported) 36 Discharge Statement: "Patient was advised to return to the ER or call 911 if any headaches, dizziness, shortness of breath, chest pain, abdominal pain, bleeding, fevers, or worsening of medical condition. Patient was counseled about treatment plan, medications, possible side effects, patientverbalized understanding. All questions were answered to the best of my ability. This discharge took greater then 30 minutes in planning, reviewing documentation, counseling the patient, and discussing with other team members." ASSESSMENT ASSESSMENT Assessment Sepsis secondary to recurrent frontal lobe sinus infection Date of Service: Feb 20, 2025 Billing Provider: LUDA GARBER NP Common Visit Codes: [id number] INP/OBS CARE(HIGH) LUDA GARBER NP Feb 20, 2025 09:34
[2025-02-20 09:43] VITALS: BP 122/89; PULSE 81; TEMP 36.6
== END 2025-02-20 10:56 | disposition home or self-care (01) | DRG 872 ==
LOC: EDSEX 14:47 → ER 14:47 → EDBD 14:47 → OVERFLOW 21:27 → WEST WING 02-17 21:05
PROVIDERS: ADMIT Nurse Practitioner Acute Care; ATTEND Nurse Practitioner Acute Care
DX: A41.9 Sepsis, unspecified organism (principal); E11.8 Type 2 diabetes mellitus with unspecified complications; E78.5 Hyperlipidemia, unspecified; G43.909 Migraine, unspecified, not intractable, without status migrainosus; J01.11 Acute recurrent frontal sinusitis; I10 Essential (primary) hypertension; I25.2 Old myocardial infarction
CPT/HCPCS: 36415; 70486; 80048; 80053; 81001; 82962; 85025; G0378; J1815; J2543